=== PATIENT | female | born 1965 | race Caucasian/White ===

== ENCOUNTER → 2017-05-17 | Outpatient (CLI) | payer OTHER ==
[~2017-05-17] MED LIST: CALC600T60 PO; LAMO10TA PO; POTA-77 PO; TYLE167L PO; VITA500046 PO; [UNRECOGNIZED DRUG - OTHER] INJ
--- NOTE | 2017-05-18 19:35 | REP ---
PET/CT: History: Restaging malignant melanoma, stage III. Comparisons: Comparison PET/CT studies are reviewed from October 20 1016 and March 25, 2016. TECHNIQUE: 1 hour 29 minutes following the intravenous injection of a 10.1 mCi dose of F-18 FDG, three-dimensional PET scintigraphy is acquired from the skull vertex to the toes. Triplanar noncontrast CT scanning is acquired through the same anatomic range for attenuation correction, and image registration with scan parameters optimized to minimize radiation exposure to the patient. PET scintigraphy and CT datasets were fused and displayed on a workstation with multiplanar and projection display capability. PET/CT Findings: Review of nonattenuation correction images show no evidence of abnormal cutaneous or subcutaneous activity. No intracranial abnormality is seen. Head and neck soft tissues are unremarkable. No abnormal hypermetabolic uptake is seen within the chest. There is a sliding type hiatal hernia noted. No abnormal pulmonary parenchymal hypermetabolic uptake is seen. In the abdomen and pelvis, normal distribution of FDG tracer is seen. No abnormality is noted. No abnormal lower extremity uptake is seen. Impression: Negative PET scintigraphy. Signed by Denton Arango MD 05/18/2017 09:20 P
== END ==
LOC: M PLARAD 08:52
PROVIDERS: ATTEND Internal Medicine Hematology & Oncology
DX: C43.59 Malignant melanoma of other part of trunk (principal)
CPT/HCPCS: 78816; A9552

== ENCOUNTER → 2017-11-23 | Outpatient (CLI) | payer OTHER | LOC: M PLARAD 09:28 | DX: C43.59 Malignant melanoma of other part of trunk (principal) | CPT/HCPCS: 78816 ==

== ENCOUNTER → 2017-11-25 | Outpatient (REF) | payer OTHER ==
[2017-11-25 13:49] LABS: BASO # 0.1 10^3/uL (0.0-0.2); BASO % 1.3 % (0.0-1.0); EOS # 0.1 10^3/uL (0.0-0.50); EOS % 1.9 % (0.0-3.0); HEMATOCRIT 41.7 % (36.0-47.0); HEMOGLOBIN 13.7 g/dl (12.0-16.0); IMMATURE GRANULOCYTE % 0.4 % (0-0); LYMPH # 1.8 10^3/uL (1.5-4.5); LYMPH % 33.8 % (24.0-44.0); MEAN CORPUSCULAR HEMOGLOBIN 30.1 pg (27.0-33.0); MEAN CORPUSCULAR HGB CONC 32.9 g/dl (32.0-36.5); MEAN CORPUSCULAR VOLUME 91.6 fl (80.0-96.0); MONO # 0.5 10^3/uL (0.0-0.8); MONO % 9.8 % (0.0-5.0); NEUTROPHILS # 2.8 10^3/uL (1.8-7.7); NEUTROPHILS % 52.8 % (36.0-66.0); PLATELET COUNT, AUTOMATED 307 10^3/uL (150-450); RED BLOOD COUNT 4.55 10^6/uL (4.00-5.40); RED CELL DISTRIBUTION WIDTH 12.9 % (11.5-14.5); WHITE BLOOD COUNT 5.3 10^3/uL (4.0-10.0)
[2017-11-25 14:47] LABS: ALBUMIN 4.3 GM/DL (3.2-5.2); ALKALINE PHOSPHATASE 111 U/L (45-117); ALT/SGPT 30 U/L (12-78); ANION GAP 9 MEQ/L (8-16); AST/SGOT 16 U/L (7-37); BILIRUBIN,TOTAL 0.3 MG/DL (0.2-1.0); BLOOD UREA NITROGEN 12 MG/DL (7-18); CALCIUM LEVEL 9.5 MG/DL (8.5-10.1); CARBON DIOXIDE LEVEL 27 MEQ/L (21-32); CHLORIDE LEVEL 103 MEQ/L (98-107); CREATININE FOR GFR 0.83 MG/DL (0.55-1.02); GLOMERULAR FILTRATION RATE > 60.0 (>51); GLUCOSE, FASTING 109 MG/DL (70-105); LDH LACTATE DEHYDROGENASE 174 U/L (84-246); POTASSIUM SERUM 4.3 MEQ/L (3.5-5.1); SODIUM LEVEL 139 MEQ/L (136-145); TOTAL PROTEIN 7.6 GM/DL (6.4-8.2)
== END ==
LOC: M LABDRAWC 12:50
DX: C43.59 Malignant melanoma of other part of trunk (principal)

== ENCOUNTER → 2018-11-15 | Outpatient (REF) | payer OTHER ==
[2018-11-15 11:59] LABS: BASO # 0.1 10^3/uL (0.0-0.2); BASO % 0.8 % (0.0-1.0); EOS # 0.1 10^3/uL (0.0-0.50); HEMATOCRIT 41.5 % (36.0-47.0); HEMOGLOBIN 13.4 g/dl (12.0-15.5); LYMPH % 32.3 % (24.0-44.0); MEAN CORPUSCULAR HEMOGLOBIN 30.6 pg (27.0-33.0); MEAN CORPUSCULAR HGB CONC 32.3 g/dl (32.0-36.5); MEAN CORPUSCULAR VOLUME 94.7 fl (80.0-96.0); MONO # 0.5 10^3/uL (0.0-0.8); MONO % 7.9 % (0.0-5.0); NEUTROPHILS # 3.4 10^3/uL (1.8-7.7); NEUTROPHILS % 56.7 % (36.0-66.0); PLATELET COUNT, AUTOMATED 277 10^3/uL (150-450); RED BLOOD COUNT 4.38 10^6/uL (4.00-5.40)
[2018-11-15 13:41] LABS: ALBUMIN 3.7 GM/DL (3.2-5.2); ALT/SGPT 33 U/L (12-78); BILIRUBIN,TOTAL 0.4 MG/DL (0.2-1.0); BLOOD UREA NITROGEN 12 MG/DL (7-18); CALCIUM LEVEL 9.1 MG/DL (8.5-10.1); CARBON DIOXIDE LEVEL 30 MEQ/L (21-32); CHLORIDE LEVEL 105 MEQ/L (98-107); CREATININE FOR GFR 0.74 MG/DL (0.55-1.30); GLOMERULAR FILTRATION RATE > 60.0 (>51); GLUCOSE, FASTING 87 MG/DL (70-100); LDH LACTATE DEHYDROGENASE 190 U/L (84-246); POTASSIUM SERUM 3.9 MEQ/L (3.5-5.1); SODIUM LEVEL 140 MEQ/L (136-145); TOTAL PROTEIN 6.6 GM/DL (6.4-8.2)
== END ==
LOC: M LABDRAWC 11:23
PROVIDERS: ATTEND Internal Medicine Hematology & Oncology
DX: C43.59 Malignant melanoma of other part of trunk (principal)

== ENCOUNTER → 2018-11-28 | Outpatient (CLI) | payer OTHER ==
--- NOTE | 2018-11-28 18:53 | REP ---
PET/CT: History: Restaging malignant melanoma. Removed from right cheek in 2013. Stage III A. Comparisons: Comparison PET/CT study November 23, 2017. TECHNIQUE: 1 hour 8 minutes following the intravenous injection of a 8.2 mCi dose of F-18 FDG, three-dimensional PET scintigraphy is acquired from the skull vertex to the toes. Triplanar noncontrast CT scanning is acquired through the same anatomic range for attenuation correction, and image registration with scan parameters optimized to minimize radiation exposure to the patient. PET scintigraphy and CT datasets were fused and displayed on a workstation with multiplanar and projection display capability. PET/CT Findings: The head and neck soft tissues are unremarkable. No abnormal facial hypermetabolic uptake is seen. No abnormal karan uptake is observed. No hilar or mediastinal hypermetabolic uptake is seen. There is a moderate size hiatal hernia again noted. No abnormal pulmonary parenchymal FDG accumulation is seen. No pulmonary nodule is appreciated. In the abdomen and pelvis, normal hepatic, splenic, gastrointestinal and genitourinary FDG accumulation is seen. No abnormal karan hypermetabolic uptake is seen. No inguinal or other lower extremity hypermetabolic uptake is appreciated. Impression: Negative PET scintigraphy. Electronically Signed by Denton Arango MD 11/29/2018 07:30 A
== END ==
LOC: M PLARAD 10:48
PROVIDERS: ATTEND Internal Medicine Hematology & Oncology
DX: C43.59 Malignant melanoma of other part of trunk (principal); K44.9 Diaphragmatic hernia without obstruction or gangrene
CPT/HCPCS: 78815; A9552

== ENCOUNTER → 2018-12-19 | Outpatient (REF) | payer OTHER ==
[2018-12-19 11:49] LABS: CHOLESTEROL RISK RATIO 3.013 (<5); FREE T4 0.78 NG/DL (0.76-1.46); THYROID STIMULATING HORMONE 2.24 uIU/ML (0.358-3.740)
[2018-12-19 12:12] LABS: HEMOGLOBIN A1c 5.9 %
== END ==
LOC: M SFHCCLAY 08:17
PROVIDERS: ATTEND Nurse Practitioner Family
DX: E66.9 Obesity, unspecified (principal)

== ENCOUNTER → 2019-01-18 | Outpatient (CLI) | payer OTHER ==
[~2019-01-18] MED LIST changes: +PROHANCE 279.3MG/ML 15ML VIAL (A9576) As Ordered ONE; +PROHANCE 279.3MG/ML 5ML VIAL (A9576) As Ordered ONE
--- NOTE | 2019-01-19 17:21 | REP ---
BILATERAL MRI BREASTS WITH AND WITHOUT CONTRAST: TECHNIQUE: Multiple sequences were obtained in the axial, coronal and sagittal planes prior to and following the intravenous administration of 20 mL ProHance. Images are reviewed in the [employer] software with CAD images as well as color overlay images. Multiple sequences are obtained following dynamic administration of intravenous contrast with subtraction images obtained. Correlation made with prior mammogram 12/27/2018 as well as diagnostic mammogram and ultrasound left breast 12/28/2018. Asymmetric density was seen in the upper outer quadrant of the left breast. There is mild to moderate scattered fibroglandular tissue bilaterally in a relatively symmetrical pattern, only minimally asymmetric on the left. Posterolaterally there is no significant cystic change in either breast. Small axillary lymph nodes are seen bilaterally without adenopathy. There is mild scattered background parenchymal enhancement bilaterally. No suspicious mass or morphologic abnormality is seen. IMPRESSION: ACR 2 benign bilateral breast MRI. No suspicious mass or morphologic abnormality. Recommend routine followup bilateral mammogram in June 2020. Unreviewed
== END ==
LOC: M RAD 10:15
PROVIDERS: ATTEND Nurse Practitioner Family
DX: R92.8 Other abnormal and inconclusive findings on diagnostic imaging of breast (principal)
CPT/HCPCS: A9576; C8908

== ENCOUNTER → 2019-02-15 | Outpatient (REF) | payer OTHER ==
[~2019-02-15] MED LIST changes: +LAMO100T80 PO; -LAMO10TA PO; -PROHANCE 279.3MG/ML 15ML VIAL (A9576) As Ordered ONE; -PROHANCE 279.3MG/ML 5ML VIAL (A9576) As Ordered ONE
== END ==
LOC: M LABDRAW1 11:42
PROVIDERS: ATTEND Nurse Practitioner
DX: G40.219 Localization-related (focal) (partial) symptomatic epilepsy and epileptic syndromes with complex partial seizures, intractable, without status epilepticus (principal)

== ENCOUNTER → 2019-03-08 | Outpatient (REF) | payer OTHER | LOC: M SFHCCLAY 12:30 | PROVIDERS: ATTEND Nurse Practitioner Family | DX: Z01.419 Encounter for gynecological examination (general) (routine) without abnormal findings (principal) ==

== ENCOUNTER → 2019-12-03 | Outpatient (REF) | payer OTHER ==
[2019-12-03 12:35] LABS: BASO # 0.1 10^3/uL (0.0-0.2); BASO % 1.4 % (0.0-1.0); EOS # 0.2 10^3/uL (0.0-0.5); EOS % 2.7 % (0.0-3.0); HEMATOCRIT 41.2 % (36.0-47.0); HEMOGLOBIN 13.4 g/dl (12.0-15.5); LYMPH # 2.2 10^3/uL (1.5-5.0); LYMPH % 37.5 % (24.0-44.0); MEAN CORPUSCULAR HEMOGLOBIN 30.8 pg (27.0-33.0); MEAN CORPUSCULAR HGB CONC 32.5 g/dl (32.0-36.5); MEAN CORPUSCULAR VOLUME 94.7 fl (80.0-96.0); MONO # 0.5 10^3/uL (0.0-0.8); MONO % 8.5 % (0.0-5.0); NEUTROPHILS # 2.9 10^3/uL (1.5-8.5); NEUTROPHILS % 49.7 % (36.0-66.0); PLATELET COUNT, AUTOMATED 287 10^3/uL (150-450); RED BLOOD COUNT 4.35 10^6/uL (4.00-5.40); WHITE BLOOD COUNT 5.9 10^3/uL (4.0-10.0)
[2019-12-03 12:40] LABS: ALBUMIN 3.7 GM/DL (3.2-5.2); ALT/SGPT 27 U/L (12-78); BILIRUBIN,TOTAL 0.5 MG/DL (0.2-1.0); BLOOD UREA NITROGEN 13 MG/DL (7-18); CALCIUM LEVEL 9.6 MG/DL (8.5-10.1); CARBON DIOXIDE LEVEL 30 MEQ/L (21-32); CHLORIDE LEVEL 107 MEQ/L (98-107); GLOMERULAR FILTRATION RATE > 60.0 (>51); GLUCOSE, FASTING 97 MG/DL (70-100); LDH LACTATE DEHYDROGENASE 159 U/L (84-246); POTASSIUM SERUM 4.2 MEQ/L (3.5-5.1); SODIUM LEVEL 140 MEQ/L (136-145); TOTAL PROTEIN 6.7 GM/DL (6.4-8.2)
== END ==
LOC: M LABDRAWC 11:40
PROVIDERS: ATTEND Internal Medicine Hematology & Oncology
DX: C43.59 Malignant melanoma of other part of trunk (principal)

== ENCOUNTER → 2019-12-03 | Outpatient (REF) | payer OTHER ==
[2019-12-03 12:48] LABS: ALBUMIN 3.7 GM/DL (3.2-5.2); ALT/SGPT 27 U/L (12-78); BILIRUBIN,TOTAL 0.4 MG/DL (0.2-1.0); BLOOD UREA NITROGEN 14 MG/DL (7-18); CALCIUM LEVEL 9.3 MG/DL (8.5-10.1); CARBON DIOXIDE LEVEL 30 MEQ/L (21-32); CHLORIDE LEVEL 107 MEQ/L (98-107); CREATININE FOR GFR 0.91 MG/DL (0.55-1.30); GLOMERULAR FILTRATION RATE > 60.0 (>51); GLUCOSE, FASTING 95 MG/DL (70-100); POTASSIUM SERUM 4.3 MEQ/L (3.5-5.1); SODIUM LEVEL 141 MEQ/L (136-145); TOTAL PROTEIN 6.7 GM/DL (6.4-8.2)
[2019-12-03 12:59] LABS: HEMOGLOBIN A1c 6.2 %
== END ==
LOC: M SFHCCLAY 07:36
PROVIDERS: ATTEND Nurse Practitioner Family
DX: R73.09 Other abnormal glucose (principal)

== ENCOUNTER → 2019-12-20 | Outpatient (CLI) | payer OTHER ==
[~2019-12-20] MED LIST changes: +D3 H10002 PO
--- NOTE | 2019-12-20 15:54 | REP ---
Clinical: Right axillary palpable mass. Technique: A directed ultrasound examination of the right axillary region using nogueira scale and color evaluation with high frequency transducer. Findings: Directed ultrasound examination of the right axillary region demonstrates 13 x 7 x 12 mm hyperechoic ovoid structure which may represent lymph node or lipoma, and 12 x 6 x 10 mm hypoechoic structure most suggestive of small lymph node. Impression: Two small nonspecific structures likely representing lymph nodes or possibly lymph node and small lipoma. Electronically Signed by Lele Jin MD 12/20/2019 03:45 P
== END ==
LOC: M RAD 14:54
PROVIDERS: ATTEND Internal Medicine Hematology & Oncology
DX: C43.59 Malignant melanoma of other part of trunk (principal)

== ENCOUNTER 2019-12-24 11:02 | Day surgery (SDC) | payer OTHER ==
[~2019-12-24] VITALS: Ht 162.6 cm; Wt 95.3 kg
[~2019-12-24 11:02] MED LIST changes: +LIDOCAINE 2% INJ 100 MG/5 ML SDV (FOR ANES.) As Ordered ONE; +NS 1,000 ML IV ONE; +propofoL 200 MG/20 ML VIAL As Ordered ONE
--- NOTE | 2019-12-24 13:34 | ROOR ---
Patient Name: Gabriella Moody Procedure Date: 12/24/2019 1:09 PM Date of : 1965 Age: 54 Room: [facility] Gender: Female Note Status: Finalized Procedure: Total Colonoscopy to Cecum + Biopsy Polypectomy Indications: High risk colon cancer surveillance: Personal history of colonic polyps, Last colonoscopy: 2014 Providers: Anthony Schulte MD Referring MD: Christy Chavarria NP Requesting Provider: Medicines: Monitored Anesthesia Care Complications: No immediate complications. Procedure: Pre-Anesthesia Assessment: - The heart rate, respiratory rate, oxygen saturations, blood pressure, adequacy of pulmonary ventilation, and response to care were monitored throughout the procedure. The Colonoscope was introduced through the anus and advanced to the cecum, identified by appendiceal orifice and ileocecal valve. The colonoscopy was performed without difficulty. The patient tolerated the procedure well. The quality of the bowel preparation was excellent. Findings: The perianal and digital rectal examinations were normal. Non-bleeding internal hemorrhoids were found during retroflexion. The hemorrhoids were small and Grade I (internal hemorrhoids that do not prolapse). A small polyp was found at 35 cm proximal to the anus. The polyp was sessile. The polyp was removed with a cold biopsy forceps. Resection and retrieval were complete. A small polyp was found at 20 cm proximal to the anus. The polyp was sessile. The polyp was removed with a cold biopsy forceps. Resection and retrieval were complete. The exam was otherwise without abnormality on direct and retroflexion views. Scattered small-mouthed diverticula were found in the recto-sigmoid colon. The exam was otherwise without abnormality. Impression: - Non-bleeding internal hemorrhoids. - One small polyp at 35 cm proximal to the anus, removed with a cold biopsy forceps. Resected and retrieved. - One small polyp at 20 cm proximal to the anus, removed with a cold biopsy forceps. Resected and retrieved. - The examination was otherwise normal on direct and retroflexion views. - Diverticulosis in the recto-sigmoid colon. - The examination was otherwise normal. - The exam was otherwise normal to the cecum. Recommendation: - Patient has a contact number available for emergencies. The signs and symptoms of potential delayed complications were discussed with the patient. Return to normal activities tomorrow. Written discharge instructions were provided to the patient. - High fiber diet. - Discharge patient to home. - Continue present medications. - Await pathology results. - Telephone GI clinic for pathology results in 1 week. - Repeat colonoscopy in 5 years for surveillance. - Return to referring physician. - The findings and recommendations were discussed with the patient's family. Anthony Schulte MD Anthony Schulte MD 12/24/2019 1:33:46 PM Electronically signed by Anthony Schulte MD Number of Addenda: 0 Note Initiated On: 12/24/2019 1:09 PM Estimated Blood Loss: Estimated blood loss: none.
[2019-12-24 13:35] VITALS: BP 124/71
== END 2019-12-24 14:04 | disposition home or self-care (01) ==
LOC: M OPP 11:02
PROVIDERS: ATTEND Internal Medicine Gastroenterology
DX: Z12.11 Encounter for screening for malignant neoplasm of colon (principal); Z86.010 Personal history of colon polyps; K64.0 First degree hemorrhoids; K63.5 Polyp of colon; K57.30 Diverticulosis of large intestine without perforation or abscess without bleeding; Z79.899 Other long term (current) drug therapy; Z88.8 Allergy status to other drugs, medicaments and biological substances

== ENCOUNTER → 2020-01-03 | Outpatient (REF) | payer OTHER ==
[~2020-01-03] MED LIST changes: -LIDOCAINE 2% INJ 100 MG/5 ML SDV (FOR ANES.) As Ordered ONE; -NS 1,000 ML IV ONE; -propofoL 200 MG/20 ML VIAL As Ordered ONE
== END ==
LOC: M LABDRAWC 12:14
PROVIDERS: ATTEND Nurse Practitioner
DX: R56.9 Unspecified convulsions (principal); Z51.81 Encounter for therapeutic drug level monitoring

== ENCOUNTER → 2020-01-14 | Outpatient (CLI) | payer OTHER ==
--- NOTE | 2020-01-14 17:10 | REP ---
PET/CT: History: Diagnosing cystic structure right axilla. Comparison PET-CT study December 03, 2018. There is a history of malignant melanoma. Stage III A melanoma 2014. Small palpable cystic structure in the right axilla. Ultrasound showed a hypoechoic areas consistent with lymph nodes. Question abnormal uptake. TECHNIQUE: 59 minutes following the intravenous injection of a 8.03 mCi dose of F-18 FDG, three-dimensional PET scintigraphy is acquired from the skull vertex to the toes . Triplanar noncontrast CT scanning is acquired through the same anatomic range for attenuation correction, and image registration with scan parameters optimized to minimize radiation exposure to the patient. PET scintigraphy and CT datasets were fused and displayed on a workstation with multiplanar and projection display capability. PET/CT Findings: Head and neck images show no abnormal uptake. There is no abnormal axillary lymph node uptake. No axillary mass lesion is seen. No cyst is identified on accompanying CT. No abnormal breast uptake is seen on either side. No abnormal cutaneous uptake is observed. In the abdomen and pelvis normal distribution of tracer is seen. No abnormal hypermetabolic uptake is seen in the lower extremities. Impression: Negative PET scintigraphy. No axillary adenopathy, mass or cyst seen. No abnormal soft tissue uptake. Electronically Signed by Denton Arango MD 01/14/2020 05:46 P
== END ==
LOC: M PLARAD 10:25
PROVIDERS: ATTEND Internal Medicine Hematology & Oncology
DX: C43.59 Malignant melanoma of other part of trunk (principal)

== ENCOUNTER → 2020-05-22 | Outpatient (CLI) | payer SELFPAY | LOC: M LABSMTC 13:12 | PROVIDERS: ATTEND Pediatrics | DX: Z03.818 Encounter for observation for suspected exposure to other biological agents ruled out (principal); Z11.59 Encounter for screening for other viral diseases ==

== ENCOUNTER → 2020-07-21 | Outpatient (CLI) | payer OTHER ==
--- NOTE | 2020-08-08 09:50 | REP ---
EXTREMITY NONVASCULAR ULTRASOUND CLINICAL: Follow-up axillary lymph node. TECHNIQUE: Real-time nogueira scale and color evaluation using linear high frequency transducer. COMPARISON: 12/20/2019. FINDINGS: Directed ultrasound examination of the axillary region demonstrates a single normal lymph node measuring 8 x 4 x 4 mm and decreased from prior examination. No further adenopathy, fluid collection, or mass lesion. IMPRESSION: Improved appearance with single normal axillary lymph node identified. [facility]
== END ==
LOC: M RAD 09:47
PROVIDERS: ATTEND Internal Medicine Hematology & Oncology
DX: C43.59 Malignant melanoma of other part of trunk (principal)

== ENCOUNTER → 2020-12-01 | Outpatient (REF) | payer OTHER ==
[2020-12-01 11:57] LABS: BASO # 0.1 10^3/uL (0.0-0.2); BASO % 1.3 % (0.0-1.0); EOS # 0.1 10^3/uL (0.0-0.5); EOS % 1.9 % (0.0-3.0); HEMATOCRIT 41.1 % (36.0-47.0); HEMOGLOBIN 13.1 g/dl (12.0-15.5); LYMPH % 32.7 % (24.0-44.0); MEAN CORPUSCULAR HEMOGLOBIN 29.2 pg (27.0-33.0); MEAN CORPUSCULAR HGB CONC 31.9 g/dl (32.0-36.5); MEAN CORPUSCULAR VOLUME 91.5 fl (80.0-96.0); MONO # 0.5 10^3/uL (0.0-0.8); MONO % 8.6 % (0.0-5.0); NEUTROPHILS # 3.4 10^3/uL (1.5-8.5); NEUTROPHILS % 55.2 % (36.0-66.0); PLATELET COUNT, AUTOMATED 323 10^3/uL (150-450); RED BLOOD COUNT 4.49 10^6/uL (4.00-5.40); WHITE BLOOD COUNT 6.2 10^3/uL (4.0-10.0)
[2020-12-01 12:28] LABS: ALBUMIN 3.8 GM/DL (3.2-5.2); ALT/SGPT 25 U/L (12-78); BILIRUBIN,TOTAL 0.1 MG/DL (0.2-1.0); BLOOD UREA NITROGEN 13 MG/DL (7-18); CALCIUM LEVEL 9.3 MG/DL (8.5-10.1); CARBON DIOXIDE LEVEL 28 MEQ/L (21-32); CHLORIDE LEVEL 105 MEQ/L (98-107); CREATININE FOR GFR 0.91 MG/DL (0.55-1.30); GLOMERULAR FILTRATION RATE > 60.0 (>51); GLUCOSE, FASTING 106 MG/DL (70-100); LDH LACTATE DEHYDROGENASE 159 U/L (84-246); POTASSIUM SERUM 4.3 MEQ/L (3.5-5.1); SODIUM LEVEL 142 MEQ/L (136-145); TOTAL PROTEIN 6.8 GM/DL (6.4-8.2)
== END ==
LOC: M LABDRAWC 11:23
PROVIDERS: ATTEND Internal Medicine Hematology & Oncology
DX: C43.59 Malignant melanoma of other part of trunk (principal)

== ENCOUNTER → 2021-02-05 | Outpatient (REF) | payer OTHER ==
[2021-02-05 13:49] LABS: BLOOD UREA NITROGEN 6 MG/DL (7-18); CALCIUM LEVEL 9.5 MG/DL (8.5-10.1); CARBON DIOXIDE LEVEL 28 MEQ/L (21-32); CHLORIDE LEVEL 103 MEQ/L (98-107); CREATININE FOR GFR 0.87 MG/DL (0.55-1.30); GLOMERULAR FILTRATION RATE > 60.0 (>51); GLUCOSE, FASTING 84 MG/DL (70-100); POTASSIUM SERUM 4.3 MEQ/L (3.5-5.1); SODIUM LEVEL 138 MEQ/L (136-145)
== END ==
LOC: M SFHCCLAY 09:12
PROVIDERS: ATTEND Family Medicine
DX: R47.89 Other speech disturbances (principal); Z85.820 Personal history of malignant melanoma of skin

== ENCOUNTER 2021-02-16 14:46 | Emergency (ER) | payer OTHER ==
[~2021-02-16] VITALS: Ht 162.6 cm; Wt 86.0 kg
[~2021-02-16 14:46] MED LIST changes: -PROHANCE 279.3MG/ML 15ML VIAL As Ordered ONE; -PROHANCE 279.3MG/ML 5ML VIAL As Ordered ONE
[2021-02-16 15:32] LABS: BASO # 0.1 10^3/uL (0.0-0.2); BASO % 0.9 % (0.0-1.0); EOS # 0.1 10^3/uL (0.0-0.5); EOS % 0.9 % (0.0-3.0); HEMATOCRIT 42.4 % (36.0-47.0); HEMOGLOBIN 13.5 g/dl (12.0-15.5); LYMPH # 1.7 10^3/uL (1.5-5.0); LYMPH % 26.3 % (24.0-44.0); MEAN CORPUSCULAR HEMOGLOBIN 29.1 pg (27.0-33.0); MEAN CORPUSCULAR HGB CONC 31.8 g/dl (32.0-36.5); MEAN CORPUSCULAR VOLUME 91.4 fl (80.0-96.0); MONO # 0.4 10^3/uL (0.0-0.8); MONO % 5.6 % (2.0-8.0); NEUTROPHILS # 4.2 10^3/uL (1.5-8.5); NEUTROPHILS % 65.8 % (36.0-66.0); PLATELET COUNT, AUTOMATED 277 10^3/uL (150-450); RED BLOOD COUNT 4.64 10^6/uL (4.00-5.40); WHITE BLOOD COUNT 6.4 10^3/uL (4.0-10.0)
[2021-02-16 16:12] LABS: ALBUMIN 4.1 GM/DL (3.2-5.2); ALT/SGPT 23 U/L (12-78); BILIRUBIN,DIRECT < 0.1 MG/DL (0.0-0.2); BILIRUBIN,TOTAL 0.2 MG/DL (0.2-1.0); BLOOD UREA NITROGEN 7 MG/DL (7-18); CALCIUM LEVEL 9.3 MG/DL (8.5-10.1); CARBON DIOXIDE LEVEL 29 MEQ/L (21-32); CHLORIDE LEVEL 105 MEQ/L (98-107); CK-MB VALUE MASS 1.3 NG/ML (<3.6); CPK CREATINE PHOSPHOKINASE 118 U/L (26-192); CREATININE FOR GFR 0.96 MG/DL (0.55-1.30); GLOMERULAR FILTRATION RATE > 60.0 (>51); GLUCOSE, FASTING 140 MG/DL (70-100); POTASSIUM SERUM 3.2 MEQ/L (3.5-5.1); SODIUM LEVEL 141 MEQ/L (136-145); TOTAL PROTEIN 7.4 GM/DL (6.4-8.2); TROPONIN I < 0.02 NG/ML (< 0.10)
[2021-02-16 17:19] LABS: RSV AMPLIFICATION NEGATIVE (NEGATIVE)
[2021-02-16] MEDS ORDERED: LORazepam 2 MG TAB PO STA (18:37)
[2021-02-16 18:53] VITALS: BP 147/79
== END 2021-02-16 18:56 | disposition short-term general hospital (02) ==
LOC: M ED 14:46
DX: R90.0 Intracranial space-occupying lesion found on diagnostic imaging of central nervous system (principal); Z88.8 Allergy status to other drugs, medicaments and biological substances

== ENCOUNTER → 2021-02-16 | Outpatient (CLI) | payer OTHER ==
[~2021-02-16] MED LIST changes: +PROHANCE 279.3MG/ML 15ML VIAL As Ordered ONE; +PROHANCE 279.3MG/ML 5ML VIAL As Ordered ONE
--- NOTE | 2021-02-16 13:10 | REPVR ---
PROCEDURE INFORMATION: Exam: MR Head Without and With Contrast Exam date and time: 02/16/2021 12:50 PM Age: 55 years old Clinical indication: Altered mental status/memory loss and speech disturbance; Dysphasia; Prior surgery; Surgery date: 6+ months; Patient HX: 2008 SX to craniotomy to remove partial seizure activity. No sz since, current severe memory loss, confusion, increased frustration and mood swings, inability to form words or remember words HX melanoma removed 2013 RT side of neck; Additional info: Word finding diff, HX of melanoma TECHNIQUE: Imaging protocol: MR of the head without and with intravenous contrast. Contrast material: PROHANCE; Contrast volume: 17 ml; Contrast route: INTRAVENOUS (IV); COMPARISON: MRI-Brain W/O FOLL BY WITH 07/19/2014 11:35 AM FINDINGS: Brain: There is a new large heterogeneous mass within the left temporal lobe, measuring approximately 5.0 x 3.8 x 3.6 cm. Areas of intrinsic increased T1 signal is present within the mass which could be due to blood products and/or melanin (particularly given the history melanoma). Heterogeneous enhancement is also present within the mass. There is significant surrounding vasogenic edema. This is causing 8 mm of rightward midline shift and left uncal herniation. There is no additional 12 x 12 x 11 mm enhancing mass in the lateral left parietal lobe, just above the sylvian fissure. Minimal surrounding edema is present. Of the findings are concerning for metastatic disease. A large surgical resection cavity is noted within the anterior right temporal lobe. There is no restricted diffusion to suggest acute infarction. Cerebral ventricles: No hydrocephalus. Bones/joints: An old right temporoparietal craniotomy is present. Paranasal sinuses: Normal as visualized. No acute sinusitis. Mastoid air cells: Normal as visualized. No mastoid effusion. Orbital cavity: Unremarkable. Soft tissues: Unremarkable. IMPRESSION: 1. New 5 cm heterogeneous mass in the left temporal lobe, as well as a 12 mm enhancing lesion in the lateral left parietal lobe. The findings are concerning for metastatic disease. 2. Significant edema around the left temporal lobe mass is causing 8 mm of rightward midline shift and left uncal herniation Electronically signed by: Ricardo Pires On 02/16/2021 13:10:43 PM
== END ==
LOC: M RAD 11:28
PROVIDERS: ATTEND Family Medicine
DX: D49.6 Neoplasm of unspecified behavior of brain (principal); R47.89 Other speech disturbances; G93.89 Other specified disorders of brain
CPT/HCPCS: 70553; A9576

== ENCOUNTER → 2021-02-27 | Outpatient (CLI) | payer OTHER ==
--- NOTE | 2021-02-27 12:15 | RADONC.CN ---
Radiation Oncology Hx/Consult Radiation Oncology Consult Date of Service: Feb 27, 2021 Pt Identifier Gabriella Moody is a 55 year old female with a history of epilepsy and stage IIIA melanoma of the trunk and right axillary nodes, treated in 2013 with resection and adjuvant interferon (Dr. Corrigan @ [facility]), who presented to her PCP in February 2021 with new-onset AYALA and word finding difficulties. MRI on 02/16/21 showed a left temporal hemorrhagic metastases as well as a smaller left frontal lobe lesion. She was transferred to [facility] (where her prior epilepsy surg linh had been performed) where she underwent resection of the left temporal mass on 02/19/21. Pathology showed metastatic melanoma. She was discharged with a decadron taper. She is seen for consideration of SRS. Diagnosis/Treatment History Oncologic History 01/23/14 Diagnosed with stage IIIA melanoma of the right trunk (upper back), SLNB+ right neck. She declined site-directed RT. 05/13/14-06/14/14 Adjuvant IV interferon. 06/14/14 Had 1 dose of subcutaneous interferon at home c/b seizure or encephalopathy. She discontinued interferon. 07/19/14 MRI head negative 10/02/14 PET-CT negative 03/20/15 PET-CT negative 09/25/15 PET-CT negative 03/25/16 PET-CT negative 10/20/16 PET-CT negative 05/17/17 PET-CT negative 11/23/17 PET-CT negative 11/28/18 PET-CT negative 01/14/20 PET-CT negative Recent data: 02/16/21 MRI head FINDINGS: Brain: There is a new large heterogeneous mass within the left temporal lobe, measuring approximately 5.0 x 3.8 x 3.6 cm. Areas of intrinsic increased T1 signal is present within the mass which could be due to blood products and/or melanin (particularly given the history melanoma). Heterogeneous enhancement is also present within the mass. There is significant surrounding vasogenic edema. This is causing 8 mm of rightward midline shift and left uncal herniation. There is no additional 12 x 12 x 11 mm enhancing mass in the lateral left parietal lobe, just above the sylvian fissure. Minimal surrounding edema is present. Of the findings are concerning for metastatic disease. A large surgical resection cavity is noted within the anterior right temporal lobe. There is no restricted diffusion to suggest acute infarction. Cerebral ventricles: No hydrocephalus. Bones/joints: An old right temporoparietal craniotomy is present. Paranasal sinuses: Normal as visualized. No acute sinusitis. Mastoid air cells: Normal as visualized. No mastoid effusion. Orbital cavity: Unremarkable. Soft tissues: Unremarkable. IMPRESSION: 1. New 5 cm heterogeneous mass in the left temporal lobe, as well as a 12 mm enhancing lesion in the lateral left parietal lobe. The findings are concerning for metastatic disease. 2. Significant edema around the left temporal lobe mass is causing 8 mm of rightward midline shift and left uncal herniation 02/20/21 MRI ([facility]) Post-op changes in the left temporal lobe. Residual edema. Redemonstration of 1.2 cm left temporal lobe metastasis. Interval History Gabriella is here with her Tong. She is tolerating decadron taper (per Dr. Simmons). She has no AYALA or incisional pain. She has no skin concerns related to her incision. She still has some mild clouded sensorium, she has a hard time remembering recent events. Her reports no significant word finding difficulties at this time. She has a call in to Dr. Corrigan's office for an appointment. Past Medical History: Epilepsy Past Surgical History: Epilepsy surgery x 2 Dr. Doshi [facility] C section Family History: Father brain cancer Mother unknown cancer type Social History: Never smoker Active drinker 2-3 drinks per day ~2 days per week Allergies / Meds Allergies: Coded Allergies: carbamazepine (Verified Allergy, Mild, rash, 12/21/19) Home Meds Reported Medications Lamotrigine (Lamotrigine) 100 Mg Tab, 150 MG PO BID, TAB 07/15/14 Review of Systems General: Reports: Normal Appetite Constitutional: Denies: Chills, Fever, Night Sweats Eyes: Denies: Pain, Vision change HEENT: Denies: Head Aches, Dysphagia, Sore Throat Skin: Denies: Rash, Lesions, Bruising Pulmonary: Denies: Dyspnea, Cough Cardiovascular: Denies: Chest Pain, Palpitations, Edema Gastrointestinal: Denies: Nausea, Vomiting, Abdominal Pain, Diarrhea Genitourinary: Denies: Dysuria, Frequency, Incontinence Hematologic: Denies: Bruising, Petecchia, Enlarged Lymph Nodes Musculoskeletal: Denies: Neck pain, Back pain Neurological: Reports: Confusion; Denies: Weakness, Numbness, Incoordination, Seizures Psych: Reports: Mood Normal, Memory Issues; Denies: Thoughts of Self Harm Vital Signs Ht 64" Wt 190 lbs BMI 32 T 97.8 P 65 RR 16 BP 155/89 O2 99% Pain 0 Fatigue 1 General Exam: Positive: Alert, Cooperative, No Acute Distress Eye Exam: Positive: PERRLA, EOMI ENT EXAM: Negative: Atraumatic (Left frontal craniotomy incision healing with sutures in place. No active drainage.) Neck Exam: Positive: Supple; Negative: Lymphadenopathy (Right neck dissection incision noted) Chest Exam: Positive: Clear to auscultation Heart Exam: Positive: Rate Normal Abdomen Exam: Positive: Soft Extremity Exam: Negative: Edema Skin Exam: Positive: Nl turgor and temperature Neuro Exam: Positive: Normal Gait, Normal Speech, Cranial Nerves 3-12 NL, Other Psych Exam: Positive: Mental status NL Diagnostic and Laboratory Diagnostic Review Radiologic images, relevant labs and pathology reports were personally reviewed and discussed with Ms. Moody. Assessment and Plan Impression Ms. Moody is a 55 year old female with a history of epilepsy and stage IIIA melanoma of the trunk and right axillary nodes, treated in 2013 with resection and adjuvant interferon (Dr. Corrigan @ [facility]), who presented to her PCP in February 2021 with new-onset AYALA and word finding difficulties. MRI on 02/16/21 showed a left temporal hemorrhagic metastases as well as a smaller left frontal lobe lesion. She was transferred to [facility] (where her prior epilepsy surgery had been performed) where she underwent resection of the left temporal mass on 02/19/21. Pathology showed metastatic melanoma. She was discharged with a decadron taper. She is seen for consideration of SRS. Stage Melanoma stage IIIA--> Now M1d stage IV Performance Status ECOG 1 Plan We had an extensive discussion with Ms. Moody regarding the diagnosis at hand and available therapeutic options. She is doing relatively well s/p craniotomy. She is tolerating steroid wean. I encouraged her to continue to wean off steroids per the taper plan she was given. She is free of seizures on her home lamictal. I discussed that her presentation is not uncommon with melanoma presenting with latent brain metastases. I also discussed that radiosurgical treatment is highly effective and that she may be eligible for additional systemic therapy with efficacy in the brain as well. I recommend we proceed with adjuvant SRS to the resection cavity and treat the intact left frontal metastasis simultaneously. Treatment will be monoisocentric VMAT-based in 3 or 5 fractions depending on the post-operative imaging (which we are attempting to obtain in hard copy) I also discussed the need to obtain a current MRI to proceed with treatment as her prior study (from 02/20/21) will have lapsed beyond the imaging [id number] of treatment quality benchmark for SRS cases we enforce here. This updated MRI can be obtained next week. We discussed the logistics of receiving radiation therapy in detail including the need for a 1-time planning session. This can occur next week as well. We will start her treatment immediately after her post-op visit with Dr. Simmons which is scheduled for 03/11/21. We reviewed the side effects of treatment including fatigue, jeremie-lesional edema and late necrosis. After discussing the risks, benefits and alternatives to radiation therapy, Ms. Moody was amenable to pursuing radiotherapy. All questions were answered to the patient's satisfaction. She also needs medical oncology follow up with Dr. Corrigan. I have placed a ref erral order. Gabriella will need body imaging to restage her, but I will defer ordering this to Dr. Corrigan. We instructed the patient that if there were any questions,concerns or changes in clinical status in the interim to contact us. Recommendations SRS VMAT 3 or 5 fractions contingent upon post-operative imaging Repeat MRI next week Simulation next week Will start treatment immediately after her post-op visit with Dr. Simmons (03/11/21) Billing Statement Total time of [52] minutes was spent preparing for the visit [4], obtaining HPI [4], examining the patient [3], reviewing diagnostic tests [6], discussing management options [22], coordinating care [2], and writing this note [11]. MARY MEZA MD Feb 27, 2021 12:15
== END ==
LOC: M ONCR 09:55
PROVIDERS: ATTEND General Practice
DX: C43.9 Malignant melanoma of skin, unspecified (principal); C79.31 Secondary malignant neoplasm of brain

== ENCOUNTER → 2021-03-10 | Outpatient (CLI) | payer OTHER ==
--- NOTE | 2021-03-10 11:12 | REP ---
INDICATION: MELANOMA W/ BRAIN METS, SRS PLANNING. COMPARISON: Comparison brain MRI study is from 16 February 2021. Comparison MRI study is also reviewed from 19 July 2014.. TECHNIQUE: Axial and sagittal imaging planes are utilized for T1 and T2-weighted scans. Sequences include spin-echo, fast spin echo, FLAIR, and diffusion weighted sequences. Post gadolinium enhanced imaging is included in all 3 planes. The gadolinium enhancement dose is 15 mL of ProHance. FINDINGS: In the interval since the most recent prior study, the patient has undergone left temporal craniotomy with resection of the large left temporal lobe mass. A previous right temporal craniotomy had been performed as well. No other bony calvarial lesion is seen. The previously noted large left temporal lobe mass lesion has been resected. There is some residual contrast enhancement at the site where the prior study showed the mass. This measures 1.8 x 2.2 cm on postcontrast imaging which may be some postoperative encephalomalacia. There is a small quantity of fluid at the craniotomy site. Mass effect is resolved. The 2nd lesion noted above the sylvian fissure in the left parietal lobe is again seen demonstrating enhancement and measuring 1.1 cm in greatest diameter. This is unchanged. No new enhancing metastatic focus is appreciated. IMPRESSION: Recent postoperative changes in the inferior temporal lobe region on the left. Residual 1.1 cm enhancing left parietal lobe nodule. No new metastatic focus is appreciated. Old postsurgical changes with encephalomalacia in the right inferior temporal. <Electronically signed by Domenico Arango > 03/10/21 [id number]
== END ==
LOC: M PLARAD 08:31
PROVIDERS: ATTEND General Practice
DX: G93.89 Other specified disorders of brain (principal); Z98.890 Other specified postprocedural states; C79.31 Secondary malignant neoplasm of brain

== ENCOUNTER 2021-03-20 13:21 | Outpatient (RCR) | payer OTHER | END 2021-04-06 | LOC: M ONCR 13:21 | PROVIDERS: ATTEND General Practice | DX: C79.31 Secondary malignant neoplasm of brain (principal) ==

== ENCOUNTER → 2021-04-08 | Outpatient (REF) | payer OTHER | LOC: M SFHCCLAY 15:00 | PROVIDERS: ATTEND Nurse Practitioner Family | DX: Z01.419 Encounter for gynecological examination (general) (routine) without abnormal findings (principal) ==

== ENCOUNTER → 2021-05-13 | Outpatient (REF) | payer OTHER ==
[2021-05-13 17:23] LABS: BLOOD UREA NITROGEN 14 MG/DL (7-18); CREATININE FOR GFR 0.72 MG/DL (0.55-1.30); GLOMERULAR FILTRATION RATE > 60.0 (>51)
== END ==
LOC: M LABDRAWC 15:55
PROVIDERS: ATTEND Internal Medicine Hematology & Oncology
DX: C79.31 Secondary malignant neoplasm of brain (principal); R74.8 Abnormal levels of other serum enzymes; C43.59 Malignant melanoma of other part of trunk

== ENCOUNTER → 2021-05-18 | Outpatient (CLI) | payer OTHER ==
[~2021-05-18] MED LIST changes: +DECA4TAB PO; +PROT1TAB2 PO; +SENN-80 PO
== END ==
LOC: M ONCR 13:40
PROVIDERS: ATTEND General Practice
DX: Z53.9 Procedure and treatment not carried out, unspecified reason (principal)

== ENCOUNTER → 2021-06-11 | Outpatient (REF) | payer OTHER ==
[2021-06-11 12:29] LABS: BLOOD UREA NITROGEN 18 MG/DL (7-18); CALCIUM LEVEL 8.6 MG/DL (8.5-10.1); CARBON DIOXIDE LEVEL 32 MEQ/L (21-32); CHLORIDE LEVEL 98 MEQ/L (98-107); CREATININE FOR GFR 0.64 MG/DL (0.55-1.30); GLOMERULAR FILTRATION RATE > 60.0 (>51); GLUCOSE, FASTING 89 MG/DL (70-100); POTASSIUM SERUM 3.6 MEQ/L (3.5-5.1); SODIUM LEVEL 135 MEQ/L (136-145)
== END ==
LOC: M SFHCCLAY 08:08
PROVIDERS: ATTEND Nurse Practitioner Family
DX: R60.9 Edema, unspecified (principal)

== ENCOUNTER → 2021-06-23 | Outpatient (CLI) | payer OTHER ==
--- NOTE | 2021-06-23 11:34 | RADONC ---
Radiation Oncology Hx/FUP Radiation Oncology Hx/FUP Date of Service: Jun 23, 2021 Pt Identifier Gabriella Moody is a 56 year old female seen for a followup visit today at the department of radiation oncology for a history of epilepsy and stage IIIA melanoma of the trunk and right axillary nodes, treated in 2013 with resection and adjuvant interferon (Dr. Corrigan @ [facility]), who presented to her PCP in February 2021 with new-onset AYALA and word finding difficulties. MRI on 02/16/21 showed a left temporal hemorrhagic metastases as well as a smaller left frontal lobe lesion. She was transferred to [facility] (where her prior epilepsy surgery had been performed) where she underwent resection of the left temporal mass on 02/19/[address] Simmons. Pathology showed metastatic melanoma. She completed SRS 30 Gy in 5 fractions to the left temporal lobe cavity and intact left frontal lobe lesion on 03/20/21. Diagnosis/Treatment History Oncologic History 01/23/14 Diagnosed with stage IIIA melanoma of the right trunk (upper back), SLNB+ right neck. She declined site-directed RT. 05/13/14-06/14/14 Adjuvant IV interferon. 06/14/14 Had 1 dose of subcutaneous interferon at home c/b seizure or encephalopathy. She discontinued interferon. 07/19/14 MRI head negative 10/02/14 PET-CT negative 03/20/15 PET-CT negative 09/25/15 PET-CT negative 03/25/16 PET-CT negative 10/20/16 PET-CT negative 05/17/17 PET-CT negative 11/23/17 PET-CT negative 11/28/18 PET-CT negative 01/14/20 PET-CT negative in body, asymmetrical uptake in the left temporal lobe 02/16/21 MRI brain 5 cm left temporal lesion, 1.2 cm left frontal lesion Resection [facility] Dr. Simmons metastatic melanoma 02/20/21 Post-op MRI UR Residual edema and 1.2 cm left frontal lesion 03/16/21-03/20/21 SRS 30 Gy in 5 fractions dose constraints met per TE Recent data: 06/17/21 MRI head [facility] Left temporal cavity with gliosis and no mass Left frontal lesion increased to 2.5 x 1.9 cm with internal hemorrhage and surrounding edema Interval History Gabriella is here with Tong. She reports that she has been unable to tolerate decadron wean below 2 mg BID (per Dr. Muhammad @ [facility]). She has experienced right arm clumsiness eye twitching and word finding difficulties when she has gone below this dose. On this dose however, she is AYALA, N, V-free. She is golfing, appetite and weight are stable. She has seen Dr. Corrigan recently who recommends PET-CT and starting encorafenib/binimetinib (given her present steroid dose precludes immunotherapy). Current Therapy Encorafenib/binimetinib pending PET-CT Stage Melanoma stage IV Social History: Never smoker Active drinker 2-3 drinks per day ~2 days per week Allergies / Meds Allergies: Coded Allergies: carbamazepine (Verified Allergy, Mild, rash, 12/21/19) Home Meds Reported Medications Sennosides (Senna) 8.6 Mg Tablet, 2 TAB PO BID for constipation for 25 Days, #100 TAB 05/18/21 Pantoprazole Sodium (Protonix) 40 Mg Tablet.dr, 40 MG PO DAILY for 30 Days, #30 TAB 05/18/21 Dexamethasone (Decadron) Unknown Strength Tablet, 2 MG PO BID for 1 Day, #1 TAB 05/18/21 Lamotrigine (Lamotrigine) 100 Mg Tab, 150 MG PO BID, TAB 07/15/14 Review of Systems Review of Systems Constitutional: Denies: Chills, Fever, Weight Loss Eyes: Denies: Pain, Vision change HEENT: Denies: Head Aches Skin: Denies: Rash Pulmonary: Denies: Dyspnea Cardiovascular: Denies: Chest Pain Gastrointestinal: Denies: Nausea, Vomiting Musculoskeletal: Denies: Neck pain, Back pain Neurological: Denies: Weakness, Numbness, Change in Speech, Confusion, Seizures Psych: Reports: Mood Normal Physical Examination Vital Signs Wt 202 lbs (from 190 lbs in February 2021) T 97.2 P 67 RR 18 BP 135/80 O2 100% Pain 0 Fatigue 0 General Exam: Alert, Cooperative, No Acute Distress Eye Exam: PERRLA, EOMI ENT EXAM: Atraumatic Neck Exam: Supple Chest Exam: Clear to auscultation Heart Exam: Rate Normal Abdomen Exam: Soft Extremity Exam: Negative: Edema Skin Exam: Nl turgor and temperature Neuro Exam: Normal Gait, Normal Speech, Strength at 5/5 X4 ext, Normal Tone, Cranial Nerves 3-12 NL Psych Exam: Mental status NL Diagnostic and Laboratory Diagnostic Review Radiologic images, relevant labs and pathology reports were personally reviewed and discussed with Ms. Moody. Assessment and Plan Impression Assessment Ms. Moody is a 56 year old female with a history of epilepsy and stage IIIA melanoma of the trunk and right axillary nodes, treated in 2013 with resection and adjuvant interferon (Dr. Corrigan @ [facility]), who presented to her PCP in February 2021 with new-onset AYALA and word finding difficulties. MRI on 02/16/21 showed a left temporal hemorrhagic metastases as well as a smaller left frontal lobe lesion. She was transferred to [facility] (where her prior epilepsy surgery had been performed) where she underwent resection of the left temporal mass on 02/19/[address] Simmons. Pathology showed metastatic melanoma. She completed SRS 30 Gy in 5 fractions to the left temporal lobe cavity and intact left frontal lobe lesion on 03/20/21. She has no recrudescent neurological symptoms on decadron 2 mg BID, unfortunately she has been unable to tolerate taper beyond this dose. I reviewed the recent MRI, which shows internal hemorrhage in the left frontal lesion. 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 Future MRI follow up should clarify this. I recommend another MRI in 3 months time, this can be done @ [facility]. We would expect minimal additional growth of the lesion and or shrinkage as the internal blood product is absorbed. Further in the future we can consider dedicated brain PET-CT and/or Ti-201 scan to clarify the nature of the lesion. If the lesion remains symptomatic and/or proves to harbor persistent cancer, then resection should be strongly considered. Dr. Muhammad is managing her steroids, I will defer to him regarding the plan for another taper attempt. With respect to her systemic therapy, Dr. Corrigan has discussed started BRAF/MEK inhibitors. I think this is a good choice given that these agent have intracranial activity. As opposed to immunotherapy, which has comparatively less intracranial efficacy. Per Gabriella Dr. Corrigan is facilitating PET-CT prior to starting treatment. Performance Status ECOG 1 Plan MRI brain @ [facility] 3 months Follow up then Ms. Moody was encouraged to call with questions or concerns in the interim period. Billing Statement Total time of [32] minutes was spent preparing for the visit [2], obtaining HPI [6], examining the patient [3], reviewing diagnostic tests [5], discussing management options [5], coordinating care [2], and writing this note [9]. MARY MEZA MD Jun 23, 2021 11:34
== END ==
LOC: M ONCR 08:49
PROVIDERS: ATTEND General Practice
DX: C43.59 Malignant melanoma of other part of trunk (principal); C77.3 Secondary and unspecified malignant neoplasm of axilla and upper limb lymph nodes; C79.31 Secondary malignant neoplasm of brain; G40.909 Epilepsy, unspecified, not intractable, without status epilepticus; Z79.899 Other long term (current) drug therapy; Z88.8 Allergy status to other drugs, medicaments and biological substances; Z92.3 Personal history of irradiation

== ENCOUNTER → 2021-06-30 | Outpatient (REF) | payer OTHER ==
[2021-06-30 12:01] LABS: BASO % 0.1 % (0.0-1.0); EOS % 0.1 % (0.0-3.0); HEMOGLOBIN 10.8 g/dl (12.0-15.5); LYMPH # 1.2 10^3/uL (1.5-5.0); LYMPH % 14.2 % (24.0-44.0); MEAN CORPUSCULAR HEMOGLOBIN 27.3 pg (27.0-33.0); MEAN CORPUSCULAR HGB CONC 31.8 g/dl (32.0-36.5); MEAN CORPUSCULAR VOLUME 85.9 fl (80.0-96.0); MONO # 0.6 10^3/uL (0.0-0.8); MONO % 6.6 % (2.0-8.0); NEUTROPHILS # 6.6 10^3/uL (1.5-8.5); NEUTROPHILS % 78.4 % (36.0-66.0); PLATELET COUNT, AUTOMATED 328 10^3/uL (150-450); RED BLOOD COUNT 3.96 10^6/uL (4.00-5.40); WHITE BLOOD COUNT 8.5 10^3/uL (4.0-10.0)
[2021-06-30 12:42] LABS: ALBUMIN 3.4 GM/DL (3.2-5.2); ALT/SGPT 61 U/L (12-78); BILIRUBIN,TOTAL 0.3 MG/DL (0.2-1.0); BLOOD UREA NITROGEN 26 MG/DL (7-18); CALCIUM LEVEL 8.3 MG/DL (8.5-10.1); CARBON DIOXIDE LEVEL 30 MEQ/L (21-32); CHLORIDE LEVEL 103 MEQ/L (98-107); CREATININE FOR GFR 0.69 MG/DL (0.55-1.30); GLOMERULAR FILTRATION RATE > 60.0 (>51); GLUCOSE, FASTING 90 MG/DL (70-100); MAGNESIUM LEVEL 2.5 MG/DL (1.8-2.4); POTASSIUM SERUM 3.5 MEQ/L (3.5-5.1); SODIUM LEVEL 138 MEQ/L (136-145)
== END ==
LOC: M LABDRAWC 11:08
PROVIDERS: ATTEND Internal Medicine Hematology & Oncology
DX: C79.31 Secondary malignant neoplasm of brain (principal); R74.8 Abnormal levels of other serum enzymes; C43.59 Malignant melanoma of other part of trunk

== ENCOUNTER → 2021-07-06 | Outpatient (CLI) | payer OTHER ==
--- NOTE | 2021-07-07 09:27 | REP ---
INDICATION: MALIGNANT NEOPLASM OF OTHER PART OF TRUNK C34.59. Progressive brain metastatic disease. Assess for evidence of systemic metastasis prior to starting treatment. COMPARISON: Most recent comparison PET-CT study is from 14 January 2020. 28 November 2018 is also reviewed brain MRI study March 10, 2021 showed post craniotomy changes left inferior temporal lobe and a 1.1 cm enhancing nodule in the left parietal lobe... TECHNIQUE: Forty-eight minutes following the intravenous injection of a 9.26 mCi dose of F-18 FDG, three-dimensional PET scintigraphy is acquired from the skull vertex to the toes. Triplanar noncontrast CT scanning is acquired through the same anatomic range for attenuation correction, and image registration with scan parameters optimized to minimize radiation exposure to the patient. PET scintigraphy and CT datasets were fused and displayed on a workstation with multiplanar and projection display capability. FINDINGS: There are bilateral craniotomy defects seen in the calvarium. There is old encephalomalacia in the right temporal lobe. On accompanying CT, there is a 2.1 cm low-density area where previous MRI from Mar 10 2021 showed a metastatic lesion in the left parietal lobe. The low-density area appears somewhat larger. There is also low-density consistent with encephalomalacia at the inferior temporal lobe level on the left. These areas are photopenic relative to adjacent normal cortical metabolic uptake. In the head and neck soft tissues, there is no abnormal hypermetabolic uptake seen. No abnormal hypermetabolic uptake is seen within the thorax. No abdominal or pelvic hypermetabolic abnormality is appreciated. No abnormal extremity uptake is seen. IMPRESSION: No abnormal hypermetabolic uptake noted. Post craniotomy changes and photopenic areas noted in the left temporal lobe, left parietal lobe, and right temporal lobe as described above. <Electronically signed by Domenico Arango > 07/07/21 [id number]
== END ==
LOC: M PLARAD 13:23
PROVIDERS: ATTEND Internal Medicine Hematology & Oncology
DX: C79.31 Secondary malignant neoplasm of brain (principal); R74.8 Abnormal levels of other serum enzymes; C43.59 Malignant melanoma of other part of trunk
CPT/HCPCS: 78816; A9552

== ENCOUNTER → 2021-07-24 | Outpatient (REF) | payer OTHER ==
[~2021-07-24] MED LIST changes: +AZIT-10 PO; +DEXA1TA PO; +DEXA2TA PO; +DEXA5TA PO; +ELIQ5TAB PO; +FURO40TA2 PO; +LAMI25TA PO; +LAMO150T3 PO; +MECL-136 PO; +NYST50SS SS; +POTA-151 PO; +ZELB1TAB PO; +[UNRECOGNIZED DRUG - CODE] PO
[2021-07-24 12:26] LABS: BASO % 0.1 % (0.0-1.0); EOS % 0.1 % (0.0-3.0); HEMATOCRIT 32.1 % (36.0-47.0); HEMOGLOBIN 9.9 g/dl (12.0-15.5); LYMPH # 1.2 10^3/uL (1.5-5.0); LYMPH % 13.1 % (24.0-44.0); MEAN CORPUSCULAR HEMOGLOBIN 26.6 pg (27.0-33.0); MEAN CORPUSCULAR HGB CONC 30.8 g/dl (32.0-36.5); MEAN CORPUSCULAR VOLUME 86.3 fl (80.0-96.0); MONO # 0.4 10^3/uL (0.0-0.8); MONO % 4.4 % (2.0-8.0); NEUTROPHILS # 7.7 10^3/uL (1.5-8.5); NEUTROPHILS % 80.8 % (36.0-66.0); PLATELET COUNT, AUTOMATED 309 10^3/uL (150-450); RED BLOOD COUNT 3.72 10^6/uL (4.00-5.40); WHITE BLOOD COUNT 9.5 10^3/uL (4.0-10.0)
[2021-07-24 13:03] LABS: ALBUMIN 3.1 GM/DL (3.2-5.2); ALT/SGPT 68 U/L (12-78); BILIRUBIN,TOTAL 0.3 MG/DL (0.2-1.0); BLOOD UREA NITROGEN 21 MG/DL (7-18); CALCIUM LEVEL 8.2 MG/DL (8.5-10.1); CARBON DIOXIDE LEVEL 28 MEQ/L (21-32); CHLORIDE LEVEL 104 MEQ/L (98-107); CREATININE FOR GFR 0.85 MG/DL (0.55-1.30); GLOMERULAR FILTRATION RATE > 60.0 (>51); GLUCOSE, FASTING 129 MG/DL (70-100); MAGNESIUM LEVEL 2.3 MG/DL (1.8-2.4); POTASSIUM SERUM 3.1 MEQ/L (3.5-5.1); SODIUM LEVEL 140 MEQ/L (136-145); TOTAL PROTEIN 5.6 GM/DL (6.4-8.2)
== END ==
LOC: M LABDRAWC 11:53
PROVIDERS: ATTEND Internal Medicine Hematology & Oncology
DX: C79.31 Secondary malignant neoplasm of brain (principal); R74.8 Abnormal levels of other serum enzymes; C43.59 Malignant melanoma of other part of trunk

== ENCOUNTER 2021-07-26 05:31 | Emergency (ER) | payer OTHER ==
[~2021-07-26] VITALS: Ht 162.6 cm; Wt 95.1 kg
[~2021-07-26 05:31] MED LIST changes: -AZIT-10 PO; -DEXA1TA PO; -DEXA2TA PO; -DEXA5TA PO; -ELIQ5TAB PO; -FURO40TA2 PO; -LAMI25TA PO; -LAMO150T3 PO; -MECL-136 PO; -NYST50SS SS; -POTA-151 PO; -ZELB1TAB PO; -[UNRECOGNIZED DRUG - CODE] PO
[2021-07-26] MEDS ORDERED: ZELB1TAB PO (05:55)
[2021-07-26] MEDS ORDERED: [UNRECOGNIZED DRUG - CODE] PO (05:55)
[2021-07-26] MEDS ORDERED: diphenhydrAMINE 50MG/ML VIAL (J1200) IV STA (06:40)
[2021-07-26 08:49] LABS: BASO % 0.3 % (0.0-1.0); EOS % 0.2 % (0.0-3.0); HEMATOCRIT 32.3 % (36.0-47.0); HEMOGLOBIN 10.2 g/dl (12.0-15.5); LYMPH # 1.2 10^3/uL (1.5-5.0); LYMPH % 12.7 % (24.0-44.0); MEAN CORPUSCULAR HEMOGLOBIN 26.6 pg (27.0-33.0); MEAN CORPUSCULAR HGB CONC 31.6 g/dl (32.0-36.5); MEAN CORPUSCULAR VOLUME 84.1 fl (80.0-96.0); MONO # 0.5 10^3/uL (0.0-0.8); NEUTROPHILS # 7.5 10^3/uL (1.5-8.5); NEUTROPHILS % 79.7 % (36.0-66.0); PLATELET COUNT, AUTOMATED 287 10^3/uL (150-450); RED BLOOD COUNT 3.84 10^6/uL (4.00-5.40); WHITE BLOOD COUNT 9.5 10^3/uL (4.0-10.0)
--- NOTE | 2021-07-26 08:58 | REP ---
INDICATION: FLUID RETENTION/CHF WORKUP. COMPARISON: PA chest image, 06/02/2015. TECHNIQUE: Upright PA and lateral chest images were obtained. FINDINGS: There is cardiomegaly and aortic ectasia consistent with benign essential hypertension. There is no evidence of congestive heart failure. The lungs are clear. There are no pleural effusions. The upper abdominal bowel gas pattern is normal. There are no bony abnormalities of the chest. IMPRESSION: 1. Findings consistent with hypertension. 2. No evidence of acute cardiopulmonary pathology. No evidence of congestive heart failure. <Electronically signed by Sam Boyce > 07/26/21 [id number]
--- NOTE | 2021-07-26 09:03 | REP ---
INDICATION: LEG SWELLING/PAIN. COMPARISON: None. TECHNIQUE: 2D and color and pulse duplex Doppler ultrasound evaluation of the venous system of both lower extremities was performed. FINDINGS: Evaluation of the deep venous system of both lower extremities reveals no evidence of thrombosis. IMPRESSION: No evidence of deep venous thrombosis of either lower extremity. <Electronically signed by Sam Boyce > 07/26/21 [id number]
[2021-07-26 09:08] LABS: ERYTHROCYTE SEDIMENTATION RATE 6 mm/hr (0-30)
[2021-07-26 09:21] LABS: CK-MB VALUE MASS 12.9 NG/ML (<3.6); CPK CREATINE PHOSPHOKINASE 706 U/L (26-192); MB/CK RELATIVE INDEX 1.83 (< OR =4); NT-PRO BNP 19 PG/ML (<125); TROPONIN I < 0.02 NG/ML (< 0.10)
[2021-07-26 09:30] LABS: ALT/SGPT 73 U/L (12-78); BILIRUBIN,DIRECT 0.1 MG/DL (0.0-0.2); BILIRUBIN,TOTAL 0.4 MG/DL (0.2-1.0); BLOOD UREA NITROGEN 24 MG/DL (7-18); CALCIUM LEVEL 8.3 MG/DL (8.5-10.1); CARBON DIOXIDE LEVEL 30 MEQ/L (21-32); CHLORIDE LEVEL 102 MEQ/L (98-107); CREATININE FOR GFR 0.79 MG/DL (0.55-1.30); GLOMERULAR FILTRATION RATE > 60.0 (>51); GLUCOSE, FASTING 107 MG/DL (70-100); LIPASE 253 U/L (73-393); POTASSIUM SERUM 3.9 MEQ/L (3.5-5.1); SODIUM LEVEL 138 MEQ/L (136-145); TOTAL PROTEIN 5.6 GM/DL (6.4-8.2)
[2021-07-26] MEDS ORDERED: NS 500 ML IV ONE (10:00)
[2021-07-26 11:55] VITALS: BP 140/82
--- NOTE | 2021-07-26 17:24 | ECGEPIP ---
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
== END 2021-07-26 11:45 | disposition home or self-care (01) ==
LOC: M ED 05:31
DX: R22.41 Localized swelling, mass and lump, right lower limb (principal); D64.9 Anemia, unspecified; R74.8 Abnormal levels of other serum enzymes; R53.83 Other fatigue; M79.10 Myalgia, unspecified site; Z88.8 Allergy status to other drugs, medicaments and biological substances
CPT/HCPCS: 71046; 80048; 80076; 81001; 82550; 82553; 83690; 83880; 84484; 85025; 85652; 86140; 93005; 93970; 96360; 96361; 96374; 99284; J1200

== ENCOUNTER 2021-07-30 12:49 | Inpatient (IN) | payer OTHER ==
[~2021-07-30 12:49] MED LIST changes: +ZELB1TAB PO; +[UNRECOGNIZED DRUG - CODE] PO
[2021-07-30 13:17] LABS: BASO # 0.1 10^3/uL (0.0-0.2); BASO % 0.7 % (0.0-1.0); EOS # 0.1 10^3/uL (0.0-0.5); EOS % 0.8 % (0.0-3.0); HEMATOCRIT 35.8 % (36.0-47.0); HEMOGLOBIN 11.1 g/dl (12.0-15.5); LYMPH # 3.2 10^3/uL (1.5-5.0); LYMPH % 24.2 % (24.0-44.0); MEAN CORPUSCULAR HEMOGLOBIN 26.6 pg (27.0-33.0); MEAN CORPUSCULAR VOLUME 85.9 fl (80.0-96.0); MONO # 0.9 10^3/uL (0.0-0.8); MONO % 6.8 % (2.0-8.0); NEUTROPHILS # 8.4 10^3/uL (1.5-8.5); NEUTROPHILS % 62.8 % (36.0-66.0); PLATELET COUNT, AUTOMATED 341 10^3/uL (150-450); RED BLOOD COUNT 4.17 10^6/uL (4.00-5.40); WHITE BLOOD COUNT 13.3 10^3/uL (4.0-10.0)
--- NOTE | 2021-07-30 13:28 | REP ---
INDICATION: multiple seizures. History of melanoma. COMPARISON: May 29, 2015 and July 14, 2014. Comparison MRI study March 10, 2021. TECHNIQUE: Helical scanning is acquired. 5 mm axial images were reformatted. Coronal MPR images were generated. FINDINGS: Digital preliminary baseball scout radiographs demonstrate evidence of bilateral craniotomy. Bone window settings confirm bilateral temporal craniotomy in sites. The left temporal craniotomy has been performed in the interval since the 2014 prior study. No acute bony abnormality is seen. Visualized paranasal sinuses are clear. No intraorbital abnormality is seen. There is a large area of chronic encephalomalacia in the inferior temporal lobe on the right which is unchanged. There is low-density and possible bone destruction in the left temporal lobe which is new compared to the prior CT study and which corresponds with a heterogeneously enhancing mass on MRI study of March 10, 2021. This area measures 3.1 x 2.2 x 3.6 cm in anteroposterior by medial to lateral by craniocaudal span respectively. In addition, there is a low-density intra-axial mass at the top of the sylvian fissure in the left posterior frontal lobe which is also new from the CT study of 2014. This measures 2.3 x 1.7 x 2.4 cm. This corresponds to an enhancing metastatic nodule seen on the March 10, 2021 study although it measured 1.1 cm at that time. It appears to have enlarged. No other intracranial mass lesion is observed. There is no evidence of intracranial hemorrhage or acute infarction. No extra-axial fluid collection is seen. IMPRESSION: Two enlarging mass lesions, 1 in the left inferior temporal lobe and the other in the left posterior frontal lobe at the top of the sylvian fissure. Both of these lesions appear a little more prominent than on the March 10, 2021 MRI images. <Electronically signed by Domenico Arango > 07/30/21 [id number]
--- NOTE | 2021-07-30 13:51 | REP ---
INDICATION: Status Epilepticus. COMPARISON: 07/26/2021. TECHNIQUE: Single portable AP view of the chest was performed. FINDINGS: There is poor ventilation. There is no evidence of acute infiltrate. Cardiomegaly is again noted. The mediastinal silhouette is grossly unchanged. IMPRESSION: No acute pulmonary disease.Cardiomegaly. <Electronically signed by Jose E Gold > 07/30/21 [id number]
[2021-07-30] MEDS ORDERED: KCL 10MEQ/100ML SWI (KRUN) 10 MEQ in IV 1 EA IV ONE (14:05)
[2021-07-30 14:06] LABS: ALBUMIN 3.4 GM/DL (3.2-5.2); ALT/SGPT 86 U/L (12-78); BILIRUBIN,DIRECT < 0.1 MG/DL (0.0-0.2); BILIRUBIN,TOTAL 0.4 MG/DL (0.2-1.0); BLOOD UREA NITROGEN 21 MG/DL (7-18); CARBON DIOXIDE LEVEL 23 MEQ/L (21-32); CHLORIDE LEVEL 95 MEQ/L (98-107); CREATININE FOR GFR 1.26 MG/DL (0.55-1.30); GLOMERULAR FILTRATION RATE 46.6 (>51); GLUCOSE, FASTING 193 MG/DL (70-100); MAGNESIUM LEVEL 1.9 MG/DL (1.8-2.4); PHOSPHORUS LEVEL 5.9 MG/DL (2.5-4.9); POTASSIUM SERUM 2.9 MEQ/L (3.5-5.1); SODIUM LEVEL 136 MEQ/L (136-145); TOTAL PROTEIN 6.2 GM/DL (6.4-8.2)
[2021-07-30 14:06] LABS: AMPHETAMINES LEVEL URINE NEGATIVE (NEGATIVE); BARBITURATES URINE NEGATIVE (NEGATIVE); BENZODIAZEPINES URINE POSITIVE (NEGATIVE); CANNABINOIDS URINE NEGATIVE (NEGATIVE); COCAINE METABOLITE URINE NEGATIVE (NEGATIVE); METHADONE URINE NEGATIVE (NEGATIVE); OPIATES URINE NEGATIVE (NEGATIVE); PHENCYCLIDINE URINE NEGATIVE (NEGATIVE)
[2021-07-30] MEDS ORDERED: NS 1,000 ML IV SCH (14:45)
[2021-07-30] MEDS ORDERED: DEXA1TA PO (15:09)
[2021-07-30] MEDS ORDERED: LAMO150T3 PO (15:09)
[2021-07-30] MEDS ORDERED: HOME MED LIST COMPLETE! XX SCH (15:10)
[2021-07-30 16:03] LABS: RSV AMPLIFICATION NEGATIVE (NEGATIVE)
[2021-07-30] MEDS ORDERED: PILL CUTTER 1 EACH XX PRN ×2 (17:35→20:00)
--- NOTE | 2021-07-30 19:52 | HPEPDOC ---
[facility] Medical History & Physical Date of Admission Jul 30, 2021 Date of Service: Jul 30, 2021 History and Physical CHIEF COMPLAINT: Seizure HISTORY OF PRESENT ILLNESS: Patient is a 56-year-old female with a past medical history of stage IV metastatic melanoma with known mets to the brain. She was eating lunch at [facility] [employer] [facility] when she had a seizure. EMS was called. Apparently she had approximately 4 seizures without return to baseline, and then she was certainly postictal while in the emergency department. By the time I came and spoke to her she seemed to be coming out of her postictal state. She does not remember anything from today, and believes that she just went to sleep last night and woke up here in the emergency department. CODE STATUS: Full code PAST MEDICAL HISTORY: Known past medical history of temporal lobe epilepsy Stage IV metastatic melanoma with known metastases to the brain PAST SURGICAL HISTORY: 2001 Temporal lobe resection with titanium plates 2008 Brain surgery for tumor resection malignant melanoma 2013 Colonoscopy 2015 Brain surgery for recurrence of metastases 02/19/2021 SOCIAL HISTORY: Non-smoker, she reports that she was not drinking alcohol recently, therefore she indicates that this would not be a cause of her seizure. In the medical record it appears that she used to have an alcoholic drink perhaps 2-3 times a week. Denies drug use. FAMILY HISTORY: Father had pituitary tumor, hypertension, prostate cancer. Mother has cardiac disease, myocardial infarction at age 65, diabetes, diverticulitis, pacemaker, diabetes. She had a brother who from suicide. REVIEW OF SYSTEMS: Review of systems actually somewhat difficult to obtain, she just keeps saying that she does not know what happened. She is not complaining of any pain at this time. She was otherwise in her usual state of health prior to her seizure, and has not been feeling ill recently. PHYSICAL EXAMINATION: General: Awake, alert, appears to be oriented, or at least she is gaining cla rity. HEENT: Head normocephalic atraumatic, conjunctiva are pink, sclera are nonicteric, buccal mucosa is pink and moist it appears that she may have bitten the right side of her tongue, it is not bleeding at this time. Hearing is grossly intact to conversation. Respiratory: Clear to auscultation bilaterally with no wheezes, rales, or rhonchi. Cardiovascular: Regular rate and rhythm, with no rubs, gallops, or murmur. Abdomen: Soft, nontender, nondistended, no hepatosplenomegaly appreciated. Bowel sounds present. Extremities: 2+ pulses in the radial and dorsalis pedis bilaterally. No evidence of clubbing or cyanosis. Neuro: Sensation intact throughout. She does have coordination of all 4 limbs. Muscle strength is 5/5 throughout the bilateral upper and lower extremities. No pronator drift. IMAGING: CT of the head without contrast IMPRESSION: Two enlarging mass lesions, 1 in the left inferior temporal lobe and the other in the left posterior frontal lobe at the top of the sylvian fissure. Both of these lesions appear a little more prominent than on the March 10, 2021 MRI images. ASSESSMENT/PLAN: Seizure with known history of prior temporal lobe seizures -Neurology was contacted by the ED provider. For now we will keep her on her same home dose of lamotrigine, and order levels. -Seizure precautions, and will continue to monitor Two enlarging mass lesions in the brain -She follows with Dr. Armstrong radiation oncology. Her most recent visit was on 06/23/2021. 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 There was some expectation of minimal additional growth of the lesion as the internal blood product is absorbed. We will try and reach out to their office tomorrow to notify them of her current status. DVT prophylaxis with teds and sequential Vital Signs Vital Signs Date Time Temp Pulse Resp B/P (MAP) Pulse Ox O2 Delivery O2 Flow Rate FiO2 07/30/21 17:50 68 98 07/30/21 16:15 150/70 (96) 07/30/21 13:49 97.2 07/30/21 13:34 20 Room Air Laboratory Data Labs 24H Laboratory Tests 2 07/30/21 13:00: Anion Gap 18H, Glomerular Filtration Rate 46.6L, Calcium Level 9.0, Phosphorus Level 5.9H, Magnesium Level 1.9, Total Bilirubin 0.4, Direct Bilirubin < 0.1, Aspartate Amino Transf (AST/SGOT) 33, Alanine Aminotransferase (ALT/SGPT) 86H, Alkaline Phosphatase 110, Total Protein 6.2L, Albumin 3.4, Albumin/Globulin Ratio 1.2 07/30/21 13:01: Immature Granulocyte % (Auto) 4.7H, Neutrophils (%) (Auto) 62.8, Lymphocytes (%) (Auto) 24.2, Monocytes (%) (Auto) 6.8, Eosinophils (%) (Auto) 0.8, Basophils (%) (Auto) 0.7, Neutrophils # (Auto) 8.4, Lymphocytes # (Auto) 3.2, Monocytes # (Auto) 0.9H, Eosinophils # (Auto) 0.1, Basophils # (Auto) 0.1, Nucleated Red Blood Cells % (auto) 0.4H 07/30/21 13:16: Bedside Glucose ([facility]) 149H 07/30/21 13:25: Urine Color YELLOW, Urine Appearance HAZY, Urine pH 5.0, Urine Specific [place] 1.019, Urine Protein 2+H, Urine Glucose (UA) NEGATIVE, Urine Ketones NEGATIVE, Urine Blood 2+H, Urine Nitrite NEGATIVE, Urine Bilirubin NEGATIVE, Urine Urobilinogen 0.2, Urine Leukocyte Esterase NEGATIVE, Urine WBC (Auto) 2, Urine RBC (Auto) 24H, Urine Hyaline Casts (Auto) 20, Urine Bacteria (Auto) NEGATIVE, Urine Squamous Epithelial Cells 1, Urine Mucus (Auto) SMALL, Urine Sperm (Auto) , Urine Opiates Screen NEGATIVE, Urine Methadone Screen NEGATIVE, Urine Barbiturates Screen NEGATIVE, Urine Phencyclidine Screen NEGATIVE, Urine Amphetamines Screen NEGATIVE, Urine Benzodiazepines Screen POSITIVEH, Urine Cocaine Metabolite Screen NEGATIVE, Urine Cannabinoids Screen NEGATIVE 07/30/21 13:26: 07/30/21 15:03: Coronavirus (COVID-19)(PCR) NEGATIVE, Influenza Type A (RT-PCR) NEGATIVE, Influenza Type B (RT-PCR) NEGATIVE, Respiratory Syncytial Virus (PCR) NEGATIVE CBC/BMP Laboratory Tests 07/30/21 13:00 07/30/21 13:01 Home Medications Scheduled Cobimetinib Fumarate (Cotellic) 20 Mg Tablet, 60 MG PO DAILY ON HOLD PER ONCOLOGIST SINCE 07/28 Dexamethasone (Dexamethasone) 1 Mg Tablet, 1.5 MG PO BID Lamotrigine (Lamotrigine) 150 Mg Tablet, 150 MG PO BID Pantoprazole Sodium (Protonix) 40 Mg Tablet.dr, 40 MG PO DAILY Vemurafenib (Zelboraf) 240 Mg Tablet, 240 MG PO BID ON HOLD PER ONCOLOGIST SINCE 07/28 Allergies Coded Allergies: carbamazepine (Verified Allergy, Mild, rash, 12/21/19) triamcinolone (Verified Allergy, Unknown, ITCH,RASH, 07/30/21) A-FIB/CHADSVASC A-FIB History Current/History of A-Fib/PAF?: No ANGELA GARDNER DO Jul 30, 2021 19:52
[2021-07-30 20:00] VITALS: BP 146/81
[2021-07-30] MEDS: ACETAMINOPHEN TAB 650MG DOSE (2X325MG) PO PRN (20:24)
[2021-07-30] MEDS: lamoTRIgine 100MG TAB PO SCH (20:24)
--- NOTE | 2021-07-31 00:17 | ECGEPIP ---
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
[2021-07-31 06:00] VITALS: BP 129/70
[2021-07-31 06:25] LABS: HEMATOCRIT 31.5 % (36.0-47.0); MEAN CORPUSCULAR HEMOGLOBIN 26.6 pg (27.0-33.0); MEAN CORPUSCULAR HGB CONC 31.7 g/dl (32.0-36.5); MEAN CORPUSCULAR VOLUME 83.8 fl (80.0-96.0); PLATELET COUNT, AUTOMATED 255 10^3/uL (150-450); RED BLOOD COUNT 3.76 10^6/uL (4.00-5.40); WHITE BLOOD COUNT 7.4 10^3/uL (4.0-10.0)
[2021-07-31 06:42] LABS: BLOOD UREA NITROGEN 14 MG/DL (7-18); CALCIUM LEVEL 8.5 MG/DL (8.5-10.1); CARBON DIOXIDE LEVEL 35 MEQ/L (21-32); CHLORIDE LEVEL 98 MEQ/L (98-107); CREATININE FOR GFR 0.73 MG/DL (0.55-1.30); GLOMERULAR FILTRATION RATE > 60.0 (>51); GLUCOSE, FASTING 107 MG/DL (70-100); SODIUM LEVEL 139 MEQ/L (136-145)
--- NOTE | 2021-07-31 08:14 | RADENCPD ---
Date/Time of Encounter Date of Encounter: Jul 31, 2021 Time of Encounter: 08:01 Encounter Note her admission for breakthrough seizure. I have reviewed her most recent CT head which shows the hemorrhagic cavity in the left frontal lobe is reduced compared to 06/16/21 MRI, this is likely the result of absorbed blood product. She has been on dual BRAF/MEK inhibitors which have potent intracranial activity so the possibility of occult metastases developing in the last month is remote and in the absence of gross new abnormality on the recent CT, I do not think repeat MRI is warranted at this time unless she fails to remain seizure-free with increase in her lamictal. Her neuro-oncologist Dr. Muhammad at [facility] has been managing her decadron and lamictal dosing. Their service is highly responsive, their transportation analyst too are excellent at helping manage these things. I would suggest contacting him for next steps regarding AEDs, but in the meantime I suggest increasing the decadron dose to 4 mg BID while she is inpatient. If she remains seizure-free and Dr Muhammad adjusts her lamictal dosing, then she could be discharged on 2 mg BID decadron which was the last steroid dose she was on which kept her symptom/seizure free. I will arrange a follow-up with me for within one week post-discharge. I will follow along. MARY MEZA MD Jul 31, 2021 08:14
[2021-07-31] MEDS ORDERED: PANTOPRAZOLE 40MG TAB (PROTONIX) PO SCH (09:00)
[2021-07-31] MEDS: lamoTRIgine 100MG TAB PO SCH (09:50)
[2021-07-31] MEDS: ACETAMINOPHEN TAB 650MG DOSE (2X325MG) PO PRN (09:50)
[2021-07-31] MEDS ORDERED: POTASSIUM CHLORIDE 10MEQ SR TABLET PO ONE ×2 (10:20→18:00)
[2021-07-31] MEDS ORDERED: diphenhydrAMINE CREAM 30GM TOP PRN (11:10)
[2021-07-31] MEDS ORDERED: DEXA1TA PO (12:55)
[2021-07-31] MEDS ORDERED: LAMI25TA PO (12:55)
--- NOTE | 2021-07-31 13:27 | DS.PDOC ---
Discharge Summary General Date of Admission Jul 30, 2021 at 17:15 Date of Discharge 07/31/2021 Discharge Summary PRIMARY CARE PHYSICIAN: Elli Chavarria ATTENDING AT TIME OF DISCHARGE: Dr. 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 She apparently did have what seems to be 3-4 subsequent seizures without return to baseline over the course of 10-15 minutes. She was given Versed in the emergency department. She did have a postictal state for approximately 1 hour. In the last 24 hours she has not had any additional seizure-like activity. CT of the head without contrast in ED showed 2 enlarging mass lesions, both of these lesions were known previously. After discussing the case with her radiation oncologist, he feels that the masses have actually dec reased in size, but that the surrounding edema has likely increased. I have called and discussed the case with both her radiation oncologist locally, as well as her neuro oncologist in [place], and they feel that an increase in her steroids is certainly advisable. She has been stable on dexamethasone 2 mg twice daily since her surgery earlier this year, and then just recently they were beginning to lower her dose of steroids when the seizure happened. After discussion with her neuro oncologist he also recommends that we increase her dose of Lamictal from 150 mg twice daily to 175 mg twice daily and that she have close follow-up in both their office and the office of her neurologist. PHYSICAL EXAMINATION ON DISCHARGE: GENERAL: Awake, alert, oriented x3. She is not in any acute distress at this time. CARDIOVASCULAR EXAMINATION: Regular rate and rhythm, with no rubs, gallops, or murmur. RESPIRATORY EXAMINATION: Clear to auscultation bilaterally with no wheezes, rales, or rhonchi. ABDOMINAL EXAMINATION: Soft, nontender, nondistended. Bowel sounds present. EXTREMITIES: No clubbing or edema noted. 2+ pulses in the radial bilaterally. NEURO: She was moving all 4 extremities, 5/5 strength throughout the bilateral upper and lower extremities. No coordination issues. No residual neurological deficits noted from her seizure. DISPOSITION: Home DISCHARGE INSTRUCTIONS: Follow-up with PCP, Dr. Armstrong, Neurologist Dr. Cheli Pitts in [place] office phone , Dr. Hosea Muhammad Neuroradiologist office , & Medical Oncologist Dr. Meenu Romero MD in [place] [phone]. Diet as tolerated. Activity as tolerated, certainly cannot drive. If symptoms return, or if you experience worsening of your symptoms, please call your doctor or return to the emergency department. Vital Signs/I&Os Vital Signs Date Time Temp Pulse Resp B/P (MAP) Pulse Ox O2 Delivery O2 Flow Rate FiO2 07/31/21 06:00 97.5 75 17 129/70 (89) 96 Room Air I&O- Last 24 Hours up to 6 AM 07/31/21 06:00 Intake Total 760 ml Output Total 1200 ml Balance -440 ml Laboratory Data Labs 24H Laboratory Tests 2 07/30/21 15:03: Coronavirus (COVID-19)(PCR) NEGATIVE, Influenza Type A (RT-PCR) NEGATIVE, Influenza Type B (RT-PCR) NEGATIVE, Respiratory Syncytial Virus (PCR) NEGATIVE 07/31/21 05:32: Nucleated Red Blood Cells % (auto) 0.3H, Anion Gap 6L, Glomerular Filtration Rate > 60.0, Calcium Level 8.5 CBC/BMP Laboratory Tests 07/31/21 05:32 Discharge Medications Scheduled Cobimetinib Fumarate (Cotellic) 20 Mg Tablet, 60 MG PO DAILY, (Reported) ON HOLD PER ONCOLOGIST SINCE 07/28 Dexamethasone (Dexamethasone) 1 Mg Tablet, 2 MG PO BID Lamotrigine (Lamotrigine) 150 Mg Tablet, 150 MG PO BID, (Reported) Lamotrigine (Lamictal) 25 Mg Tablet, 1 TAB PO BID Take in addition to 150mg BID for a total of 175mg BID Pantoprazole Sodium (Protonix) 40 Mg Tablet.dr, 40 MG PO DAILY, (Reported) Vemurafenib (Zelboraf) 240 Mg Tablet, 240 MG PO BID, (Reported) ON HOLD PER ONCOLOGIST SINCE 07/28 Allergies Coded Allergies: carbamazepine (Verified Allergy, Mild, rash, 12/21/19) triamcinolone (Verified Allergy, Unknown, ITCH,RASH, 07/30/21) JOSE E GARDNER DO Jul 31, 2021 13:27
== END 2021-07-31 15:12 | disposition home or self-care (01) | DRG 101 ==
LOC: M ED 12:49 → EDBD 12:49 → M ED INP 17:15 → ENRESERV 19:01 → M MSPAV 19:52
PROVIDERS: ADMIT Neuromusculoskeletal Medicine & OMM; ATTEND Neuromusculoskeletal Medicine & OMM
DX: G40.409 Other generalized epilepsy and epileptic syndromes, not intractable, without status epilepticus (principal); C79.31 Secondary malignant neoplasm of brain; Z20.822 Contact with and (suspected) exposure to COVID-19; Z79.899 Other long term (current) drug therapy; Z88.8 Allergy status to other drugs, medicaments and biological substances

== ENCOUNTER → 2021-08-03 | Outpatient (REF) | payer OTHER ==
[~2021-08-03] MED LIST changes: +DEXA1TA PO; +LAMI25TA PO; +LAMO150T3 PO
[2021-08-03 19:10] LABS: BLOOD UREA NITROGEN 21 MG/DL (7-18); CALCIUM LEVEL 9.2 MG/DL (8.5-10.1); CARBON DIOXIDE LEVEL 34 MEQ/L (21-32); CHLORIDE LEVEL 99 MEQ/L (98-107); CK-MB VALUE MASS 5.8 NG/ML (<3.6); CPK CREATINE PHOSPHOKINASE 222 U/L (26-192); CREATININE FOR GFR 0.82 MG/DL (0.55-1.30); GLOMERULAR FILTRATION RATE > 60.0 (>51); GLUCOSE, FASTING 100 MG/DL (70-100); MB/CK RELATIVE INDEX 2.61 (< OR =4); POTASSIUM SERUM 3.5 MEQ/L (3.5-5.1); SODIUM LEVEL 138 MEQ/L (136-145)
== END ==
LOC: M SFHCCLAY 10:36
PROVIDERS: ATTEND Nurse Practitioner Family
DX: G40.209 Localization-related (focal) (partial) symptomatic epilepsy and epileptic syndromes with complex partial seizures, not intractable, without status epilepticus (principal); C79.31 Secondary malignant neoplasm of brain; E87.6 Hypokalemia; R74.8 Abnormal levels of other serum enzymes

== ENCOUNTER → 2021-08-11 | Outpatient (CLI) | payer OTHER ==
[~2021-08-11] MED LIST changes: +LIDOCAINE 1% MDV 20ML VIAL As Ordered ONE; +fentaNYL 100 MCG/2 ML INJECTION (J3010) As Ordered ONE
--- NOTE | 2021-08-11 16:39 | RADONC ---
Radiation Oncology Hx/FUP Radiation Oncology Hx/FUP Date of Service: Aug 11, 2021 Pt Identifier Gabriella Moody is a 56 year old female seen for a followup visit today at the department of radiation oncology for a history of epilepsy and stage IIIA melanoma of the trunk and right axillary nodes, treated in 2013 with resection and adjuvant interferon (Dr. Corrigan @ [facility]), who presented to her PCP in February 2021 with new-onset AYALA and word finding difficulties. MRI on 02/16/21 showed a left temporal hemorrhagic metastases as well as a smaller left frontal lobe lesion. She was transferred to [facility] (where her prior epilepsy surgery had been performed) where she underwent resection of the left temporal mass on 02/19/[address] Simmons. Pathology showed metastatic melanoma. She completed SRS 30 Gy in 5 fractions to the left temporal lobe cavity and intact left frontal lobe lesion on 03/20/21. Diagnosis/Treatment History Oncologic History 01/23/14 Diagnosed with stage IIIA melanoma of the right trunk (upper back), SLNB+ right neck. She declined site-directed RT. 05/13/14-06/14/14 Adjuvant IV interferon. 06/14/14 Had 1 dose of subcutaneous interferon at home c/b seizure or encephalopathy. She discontinued interferon. 07/19/14 MRI head negative 10/02/14 PET-CT negative 03/20/15 PET-CT negative 09/25/15 PET-CT negative 03/25/16 PET-CT negative 10/20/16 PET-CT negative 05/17/17 PET-CT negative 11/23/17 PET-CT negative 11/28/18 PET-CT negative 01/14/20 PET-CT negative in body, asymmetrical uptake in the left temporal lobe 02/16/21 MRI brain 5 cm left temporal lesion, 1.2 cm left frontal lesion Resection [facility] Dr. Simmons metastatic melanoma 02/20/21 Post-op MRI [facility] Residual edema and 1.2 cm left frontal lesion 03/16/21-03/20/21 SRS 30 Gy in 5 fractions dose constraints met per TE Interval History Gabriella is seen today s/p recent brief hospital admission for a breakthrough seizure on 07/31/21. She was at [facility] subs eating and had a generalized seizure. She was post-ictal for some time thereafter. She had decreased her morning decadron dose from 2 mg to 1.5 mg the morning of the seizure. Dr. Haddad ([facility] neuro onc) increased her dose back to 2 mg BID. He also increased her lamictal dose as well. He would if we would manage the decadron locally as well as the MRI surveillance. She has been seizure-free and otherwise at neurologic baseline since the decadron was increased back up. She has been having problems with her MEK/BRAF therapy, she had a photocutaneous reaction which was severe. She also has been having leg pains and swelling. Her dose has been adjusted down. Current Therapy Encorafenib/binimetinib Stage Melanoma stage IV Social History: Never smoker Active drinker 2-3 drinks per day ~2 days per week Allergies / Meds Allergies: Coded Allergies: carbamazepine (Verified Allergy, Mild, rash, 12/21/19) triamcinolone (Verified Allergy, Unknown, ITCH,RASH, 07/30/21) Home Meds Active Scripts Lamotrigine (Lamictal) 25 Mg Tablet, 1 TAB PO BID for 30 Days, #60 TAB Take in addition to 150mg BID for a total of 175mg BID Prov:ANGELA GARDNER DO 07/31/21 Dexamethasone (Dexamethasone) 1 Mg Tablet, 2 MG PO BID for 14 Days, #56 TAB Prov:ANGELA GARDNER DO 07/31/21 Reported Medications Lamotrigine (Lamotrigine) 150 Mg Tablet, 150 MG PO BID 07/30/21 Cobimetinib Fumarate (Cotellic) 20 Mg Tablet, 60 MG PO DAILY ON HOLD PER ONCOLOGIST SINCE 07/2807/26/21 Vemurafenib (Zelboraf) 240 Mg Tablet, 240 MG PO BID ON HOLD PER ONCOLOGIST SINCE 07/2807/26/21 Pantoprazole Sodium (Protonix) 40 Mg Tablet., 40 MG PO DAILY 05/18/21 Review of Systems Review of Systems Constitutional: Reports: Fatigue; Denies: Weight Loss Eyes: Denies: Pain, Vision change HEENT: Denies: Head Aches Skin: Reports: Rash, Lesions Pulmonary: Denies: Dyspnea, Cough Cardiovascular: Denies: Chest Pain Gastrointestinal: Denies: Abdominal Pain Hematologic: Reports: Bruising; Denies: Petecchia Endocrine: Denies: Cold Intolerance Musculoskeletal: Denies: Neck pain, Back pain Neurological: Denies: Weakness, Numbness, Change in Speech, Seizures Psych: Reports: Mood Normal Physical Examination Vital Signs Wt 208 lbs T 98.2 P 81 RR 18 BP 158/90 O2 100% Pain 0 Fatigue 0 General Exam: Alert, Cooperative, No Acute Distress Eye Exam: PERRLA EOMI ENT EXAM: Atraumatic Neck Exam: Supple Chest Exam: Clear to auscultation Heart Exam: Rate Normal Extremity Exam: Negative: Edema Skin Exam: Rash (Healing sunburn evident BL forearms) Neuro Exam: Normal Gait, Normal Speech, Cranial Nerves 3-12 NL Psych Exam: Mental status NL Diagnostic and Laboratory Diagnostic Review Radiologic images, relevant labs and pathology reports were personally reviewed and discussed with Ms. Moody. Assessment and Plan Impression Assessment Ms. Moody is a 56 year old female with a history of epilepsy and stage IIIA melanoma of the trunk and right axillary nodes, treated in 2013 with resection and adjuvant interferon (Dr. Corrigan @ [facility]), who presented to her PCP in February 2021 with new-onset AYALA and word finding difficulties. MRI on 02/16/21 showed a left temporal hemorrhagic metastases as well as a smaller left frontal lobe lesion. She was transferred to [facility] (where her prior epilepsy surgery had been performed) where she underwent resection of the left temporal mass on 02/19/[address] Simmons. Pathology showed metastatic melanoma. She completed SRS 30 Gy in 5 fractions to the left temporal lobe cavity and intact left frontal lobe lesion on 03/20/21. 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 Given latency from SRS and 'soap bubble' appearance. In addition I extolled that MEK/BRAF inhibitor therapy is highly effective in the [employer], which is further hedge against the presence of intracranial disease. However, she is very symptomatic from the necrosis and the decrease in decadron correlates with her seizure exactly, I agree with remaining on 2 mg BID decadron for the time being until next MRI is done. Where if there are stable findings I will initiate an extremely slow taper. I also discussed the alternatives to decadron for the management of refractory necrosis; Avastin and resection. Both of these are drastic options and I do not recommend them without a more earnest attempt at a steroid wean. Tong and Gabriella agreed to proceed. Her next MRI will be 09/22/21 and she is scheduled to see me again on 09/29/21. Performance Status ECOG 1 Plan Continue decadron 2 mg BID until instructed otherwise MRI head 09/22/21 Follow up 09/29/21 Ms. Moody was encouraged to call with questions or concerns in the interim period. Billing Statement Total time of [27] minutes was spent preparing for the visit [2], obtaining HPI [5], examining the patient [2], reviewing diagnostic tests [3], discussing management options [17], coordinating care [2], and writing this note [6]. MARY MEZA MD Aug 11, 2021 16:38
== END ==
LOC: M ONCR 15:02
PROVIDERS: ATTEND General Practice
DX: C79.31 Secondary malignant neoplasm of brain (principal); G40.909 Epilepsy, unspecified, not intractable, without status epilepticus; Z79.899 Other long term (current) drug therapy; Z85.820 Personal history of malignant melanoma of skin; Z92.3 Personal history of irradiation

== ENCOUNTER → 2021-08-11 | Outpatient (REF) | payer OTHER ==
[~2021-08-11] MED LIST changes: -LIDOCAINE 1% MDV 20ML VIAL As Ordered ONE; -fentaNYL 100 MCG/2 ML INJECTION (J3010) As Ordered ONE
[2021-08-11 14:00] LABS: BASO % 0.1 % (0.0-1.0); HEMATOCRIT 31.7 % (36.0-47.0); HEMOGLOBIN 9.9 g/dl (12.0-15.5); LYMPH # 0.9 10^3/uL (1.5-5.0); LYMPH % 13.5 % (24.0-44.0); MEAN CORPUSCULAR HEMOGLOBIN 26.4 pg (27.0-33.0); MEAN CORPUSCULAR HGB CONC 31.2 g/dl (32.0-36.5); MEAN CORPUSCULAR VOLUME 84.5 fl (80.0-96.0); MONO # 0.5 10^3/uL (0.0-0.8); MONO % 6.8 % (2.0-8.0); NEUTROPHILS # 5.4 10^3/uL (1.5-8.5); NEUTROPHILS % 78.4 % (36.0-66.0); PLATELET COUNT, AUTOMATED 344 10^3/uL (150-450); RED BLOOD COUNT 3.75 10^6/uL (4.00-5.40); WHITE BLOOD COUNT 6.9 10^3/uL (4.0-10.0)
[2021-08-11 15:45] LABS: ALBUMIN 3.3 GM/DL (3.2-5.2); BILIRUBIN,TOTAL 0.5 MG/DL (0.2-1.0); CALCIUM LEVEL 9.1 MG/DL (8.5-10.1); CREATININE FOR GFR 1.03 MG/DL (0.55-1.30); GLOMERULAR FILTRATION RATE 58.8 (>51); POTASSIUM SERUM 3.3 MEQ/L (3.5-5.1); TOTAL PROTEIN 5.8 GM/DL (6.4-8.2)
== END ==
LOC: M LABDRAWC 12:11
PROVIDERS: ATTEND Internal Medicine Hematology & Oncology
DX: C43.59 Malignant melanoma of other part of trunk (principal); C79.31 Secondary malignant neoplasm of brain; R74.8 Abnormal levels of other serum enzymes

== ENCOUNTER → 2021-08-24 | Outpatient (REF) | payer OTHER | LOC: M LABDRAWP 15:47 | PROVIDERS: ATTEND Nurse Practitioner | DX: G40.119 Localization-related (focal) (partial) symptomatic epilepsy and epileptic syndromes with simple partial seizures, intractable, without status epilepticus (principal) ==

== ENCOUNTER → 2021-08-28 | Outpatient (CLI) | payer OTHER ==
--- NOTE | 2021-08-28 12:20 | RADENCPD ---
Date/Time of Encounter Date of Encounter: Aug 28, 2021 Time of Encounter: 12:16 Encounter Gabriella came in for a brief follow up today for concern of swelling in her face. The swelling is painless, has been ongoing for some weeks. No associated rhinorrhea or infectious symptoms. 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 I counseled that these sequelae are typical and that there is no immediate remedy given her ongoing steroid dependence. From a neurological standpoint she is AYALA and weakness-free, and she is mentating at baseline. She has resolving skin reaction from her BRAF/MEK inhibitors on her forearms BL. She has had no additional seizures. We discussed the plan to follow up in September after her next MRI and consider a glacially slow steroid taper at that time. She has PCP and ophthalmology follow up in the meantime. She is welcome to call anytime with any concerns. MARY MEZA MD Aug 28, 2021 12:20
== END ==
LOC: M ONCR 11:35
PROVIDERS: ATTEND General Practice
DX: C79.31 Secondary malignant neoplasm of brain (principal); L59.8 Other specified disorders of the skin and subcutaneous tissue related to radiation; Z79.52 Long term (current) use of systemic steroids; Z92.3 Personal history of irradiation

== ENCOUNTER → 2021-09-17 | Outpatient (REF) | payer OTHER ==
[~2021-09-17] MED LIST changes: +AZIT-10 PO; +NYST50SS SS
[2021-09-17 11:33] LABS: BASO % 0.1 % (0.0-1.0); HEMATOCRIT 26.4 % (36.0-47.0); HEMOGLOBIN 8.1 g/dl (12.0-15.5); LYMPH % 14.5 % (24.0-44.0); MEAN CORPUSCULAR HEMOGLOBIN 25.7 pg (27.0-33.0); MEAN CORPUSCULAR HGB CONC 30.7 g/dl (32.0-36.5); MEAN CORPUSCULAR VOLUME 83.8 fl (80.0-96.0); MONO # 0.4 10^3/uL (0.0-0.8); MONO % 5.7 % (2.0-8.0); NEUTROPHILS # 5.3 10^3/uL (1.5-8.5); NEUTROPHILS % 77.4 % (36.0-66.0); PLATELET COUNT, AUTOMATED 351 10^3/uL (150-450); RED BLOOD COUNT 3.15 10^6/uL (4.00-5.40); WHITE BLOOD COUNT 6.8 10^3/uL (4.0-10.0)
[2021-09-17 12:01] LABS: ALBUMIN 3.4 GM/DL (3.2-5.2); ALT/SGPT 65 U/L (12-78); BILIRUBIN,TOTAL 0.6 MG/DL (0.2-1.0); BLOOD UREA NITROGEN 18 MG/DL (7-18); CALCIUM LEVEL 9.3 MG/DL (8.5-10.1); CARBON DIOXIDE LEVEL 35 MEQ/L (21-32); CHLORIDE LEVEL 98 MEQ/L (98-107); CREATININE FOR GFR 0.99 MG/DL (0.55-1.30); GLOMERULAR FILTRATION RATE > 60.0 (>51); GLUCOSE, FASTING 135 MG/DL (70-100); MAGNESIUM LEVEL 2.3 MG/DL (1.8-2.4); POTASSIUM SERUM 3.1 MEQ/L (3.5-5.1); SODIUM LEVEL 137 MEQ/L (136-145); TOTAL PROTEIN 5.8 GM/DL (6.4-8.2)
== END ==
LOC: M LABDRAWC 11:08
PROVIDERS: ATTEND Internal Medicine Hematology & Oncology
DX: C79.31 Secondary malignant neoplasm of brain (principal); R74.8 Abnormal levels of other serum enzymes; C43.59 Malignant melanoma of other part of trunk

== ENCOUNTER → 2021-09-22 | Outpatient (CLI) | payer OTHER ==
[~2021-09-22] MED LIST changes: +PROHANCE 279.3MG/ML 15ML VIAL As Ordered ONE; +PROHANCE 279.3MG/ML 5ML VIAL As Ordered ONE
--- NOTE | 2021-09-22 16:50 | REPVR ---
PROCEDURE INFORMATION: Exam: MR Head Without and With Contrast Exam date and time: 09/22/2021 11:24 AM Age: 56 years old Clinical indication: Condition or disease; Other: Brain mets from melanoma; Prior surgery; Surgery date: 6+ months; Surgery type: Craniotomy TECHNIQUE: Imaging protocol: MR of the head without and with intravenous contrast. Contrast material: PROHANCE; Contrast volume: 18 ml; Contrast route: INTRAVENOUS (IV); COMPARISON: CT Head without contrast 07/30/2021 1:05 PM FINDINGS: Brain: Approximately 2.1 cm focus of T1/T2/FLAIR hyperintensity within the left frontal operculum superimposed over the postsurgical resection cavity, region also demonstrating prominent restricted diffusion. Unclear if this area of signal abnormality reflects surgical cavity postoperative hemorrhage versus recurrent hemorrhagic/nonhemorrhagic focus of metastatic melanoma. Chronic encephalomalacia changes in the bilateral temporal lobes. Nonspecific T2/FLAIR hyperintensities of the periventricular and deep subcortical white matter, most likely secondary to chronic small vessel ischemic change. No evidence of mass effect or midline shift. Cerebral ventricles: Generalized mild prominence of the ventricles and sulci, likely attributed to parenchymal volume loss. Bones/joints: Chronic left frontal craniotomy defect chronic bilateral temporal craniotomy defects. Paranasal sinuses: Normal as visualized. No acute sinusitis. Mastoid air cells: No mastoid effusion. Orbital cavity: Unremarkable. Soft tissues: Unremarkable. IMPRESSION: 1. Approximately 2.1 cm focus of T1/T2/FLAIR hyperintensity superimposed over the postsurgical resection cavity in the left frontal lobe, unclear if this reflects surgical resection cavity postoperative hemorrhage versus recurrent hemorrhagic/nonhemorrhagic focus of metastatic melanoma. Recommend neurosurgery consultation. 2. Chronic findings, as above. Electronically signed by: Alexi Mckeon On 09/22/2021 16:50:09 PM
== END ==
LOC: M RAD 10:19
PROVIDERS: ATTEND General Practice
DX: C79.31 Secondary malignant neoplasm of brain (principal)

== ENCOUNTER → 2021-09-29 | Outpatient (CLI) | payer OTHER ==
[~2021-09-29] MED LIST changes: +DEXA2TA PO; +DEXA5TA PO; +ELIQ5TAB PO; +FURO40TA2 PO; +MECL-136 PO; +POTA-151 PO; -PROHANCE 279.3MG/ML 15ML VIAL As Ordered ONE; -PROHANCE 279.3MG/ML 5ML VIAL As Ordered ONE
== END ==
LOC: M ONCR 13:50
PROVIDERS: ATTEND General Practice
DX: C79.31 Secondary malignant neoplasm of brain (principal); C43.59 Malignant melanoma of other part of trunk; Z92.3 Personal history of irradiation; Z88.1 Allergy status to other antibiotic agents; Z79.899 Other long term (current) drug therapy

== ENCOUNTER → 2021-09-30 | Outpatient (REF) | payer OTHER ==
[~2021-09-30] MED LIST changes: -DEXA2TA PO; -ELIQ5TAB PO; -FURO40TA2 PO; -MECL-136 PO; -POTA-151 PO
[2021-09-30 16:20] LABS: HEMATOCRIT 25.4 % (36.0-47.0); HEMOGLOBIN 7.8 g/dl (12.0-15.5); LYMPH # 1.3 10^3/uL (1.5-5.0); LYMPH % 16.6 % (24.0-44.0); MEAN CORPUSCULAR HEMOGLOBIN 24.8 pg (27.0-33.0); MEAN CORPUSCULAR HGB CONC 30.7 g/dl (32.0-36.5); MEAN CORPUSCULAR VOLUME 80.6 fl (80.0-96.0); MONO # 0.3 10^3/uL (0.0-0.8); MONO % 4.4 % (2.0-8.0); NEUTROPHILS # 5.9 10^3/uL (1.5-8.5); NEUTROPHILS % 77.5 % (36.0-66.0); PLATELET COUNT, AUTOMATED 375 10^3/uL (150-450); RED BLOOD COUNT 3.15 10^6/uL (4.00-5.40); WHITE BLOOD COUNT 7.5 10^3/uL (4.0-10.0)
[2021-09-30 16:54] LABS: ALBUMIN 3.7 GM/DL (3.2-5.2); ALT/SGPT 61 U/L (12-78); BILIRUBIN,TOTAL 0.6 MG/DL (0.2-1.0); BLOOD UREA NITROGEN 20 MG/DL (7-18); CALCIUM LEVEL 8.9 MG/DL (8.5-10.1); CARBON DIOXIDE LEVEL 32 MEQ/L (21-32); CHLORIDE LEVEL 95 MEQ/L (98-107); CREATININE FOR GFR 0.97 MG/DL (0.55-1.30); GLOMERULAR FILTRATION RATE > 60.0 (>51); GLUCOSE, FASTING 135 MG/DL (70-100); MAGNESIUM LEVEL 3.6 MG/DL (1.8-2.4); POTASSIUM SERUM 3.1 MEQ/L (3.5-5.1); SODIUM LEVEL 135 MEQ/L (136-145); TOTAL PROTEIN 6.1 GM/DL (6.4-8.2)
== END ==
LOC: M LABDRAWC 15:37
PROVIDERS: ATTEND Internal Medicine Hematology & Oncology
DX: C79.31 Secondary malignant neoplasm of brain (principal); R74.8 Abnormal levels of other serum enzymes; C43.59 Malignant melanoma of other part of trunk

== ENCOUNTER → 2021-10-12 | Outpatient (REF) | payer OTHER ==
[2021-10-12 11:31] LABS: BASO % 0.3 % (0.0-1.0); HEMATOCRIT 22.3 % (36.0-47.0); LYMPH # 1.4 10^3/uL (1.5-5.0); MEAN CORPUSCULAR HEMOGLOBIN 24.5 pg (27.0-33.0); MEAN CORPUSCULAR VOLUME 81.4 fl (80.0-96.0); MONO # 0.4 10^3/uL (0.0-0.8); MONO % 3.5 % (2.0-8.0); NEUTROPHILS % 77.7 % (36.0-66.0); PLATELET COUNT, AUTOMATED 289 10^3/uL (150-450); RED BLOOD COUNT 2.74 10^6/uL (4.00-5.40); WHITE BLOOD COUNT 11.6 10^3/uL (4.0-10.0)
[2021-10-12 11:40] LABS: HEMOGLOBIN 6.7 g/dl (12.0-15.5)
[2021-10-12 12:45] LABS: ALT/SGPT 61 U/L (12-78); BILIRUBIN,TOTAL 0.8 MG/DL (0.2-1.0); BLOOD UREA NITROGEN 20 MG/DL (7-18); CALCIUM LEVEL 9.2 MG/DL (8.5-10.1); CARBON DIOXIDE LEVEL 30 MEQ/L (21-32); CHLORIDE LEVEL 96 MEQ/L (98-107); CREATININE FOR GFR 0.98 MG/DL (0.55-1.30); GLOMERULAR FILTRATION RATE > 60.0 (>51); GLUCOSE, FASTING 167 MG/DL (70-100); MAGNESIUM LEVEL 2.2 MG/DL (1.8-2.4); POTASSIUM SERUM 3.1 MEQ/L (3.5-5.1); SODIUM LEVEL 134 MEQ/L (136-145); TOTAL PROTEIN 5.8 GM/DL (6.4-8.2)
== END ==
LOC: M LABDRAWC 11:08
PROVIDERS: ATTEND Internal Medicine Hematology & Oncology
DX: C79.31 Secondary malignant neoplasm of brain (principal); R74.8 Abnormal levels of other serum enzymes; C43.59 Malignant melanoma of other part of trunk

== ENCOUNTER → 2021-12-16 | Outpatient (CLI) | payer OTHER ==
[~2021-12-16] MED LIST changes: +DEXA2TA PO
[2021-12-16 12:40] LABS: ALBUMIN 3.1 GM/DL (3.2-5.2); ALT/SGPT 47 U/L (12-78); BILIRUBIN,TOTAL 0.2 MG/DL (0.2-1.0); BLOOD UREA NITROGEN 9 MG/DL (7-18); CALCIUM LEVEL 9.1 MG/DL (8.5-10.1); CARBON DIOXIDE LEVEL 28 MEQ/L (21-32); CHLORIDE LEVEL 108 MEQ/L (98-107); CREATININE FOR GFR 0.72 MG/DL (0.55-1.30); GLOMERULAR FILTRATION RATE > 60.0 (>51); GLUCOSE, FASTING 125 MG/DL (70-100); POTASSIUM SERUM 4.2 MEQ/L (3.5-5.1); SODIUM LEVEL 142 MEQ/L (136-145); TOTAL PROTEIN 6.4 GM/DL (6.4-8.2)
== END ==
LOC: M ONCR 11:06
PROVIDERS: ATTEND General Practice
DX: C79.31 Secondary malignant neoplasm of brain (principal); D64.9 Anemia, unspecified; R94.6 Abnormal results of thyroid function studies; R94.8 Abnormal results of function studies of other organs and systems

== ENCOUNTER → 2021-12-16 | Outpatient (REF) | payer OTHER ==
[2021-12-16 12:06] LABS: BASO % 0.5 % (0.0-1.0); EOS % 0.5 % (0.0-3.0); HEMOGLOBIN 7.7 g/dl (12.0-15.5); LYMPH # 0.9 10^3/uL (1.5-5.0); LYMPH % 14.3 % (24.0-44.0); MEAN CORPUSCULAR HEMOGLOBIN 24.3 pg (27.0-33.0); MEAN CORPUSCULAR HGB CONC 28.5 g/dl (32.0-36.5); MEAN CORPUSCULAR VOLUME 85.2 fl (80.0-96.0); MONO # 0.4 10^3/uL (0.0-0.8); MONO % 6.4 % (2.0-8.0); NEUTROPHILS # 5.1 10^3/uL (1.5-8.5); NEUTROPHILS % 77.5 % (36.0-66.0); PLATELET COUNT, AUTOMATED 285 10^3/uL (150-450); RED BLOOD COUNT 3.17 10^6/uL (4.00-5.40); WHITE BLOOD COUNT 6.6 10^3/uL (4.0-10.0)
[2021-12-16 12:43] LABS: ALBUMIN 3.1 GM/DL (3.2-5.2); ALT/SGPT 46 U/L (12-78); BILIRUBIN,TOTAL 0.2 MG/DL (0.2-1.0); BLOOD UREA NITROGEN 9 MG/DL (7-18); CARBON DIOXIDE LEVEL 27 MEQ/L (21-32); CHLORIDE LEVEL 108 MEQ/L (98-107); CREATININE FOR GFR 0.73 MG/DL (0.55-1.30); FERRITIN 16 NG/ML (8-252); GLOMERULAR FILTRATION RATE > 60.0 (>51); GLUCOSE, FASTING 121 MG/DL (70-100); IRON (FE) 20 UG/DL (50-170); PERCENT SATURATION 4.9 % (13.2-45.0); POTASSIUM SERUM 4.3 MEQ/L (3.5-5.1); SODIUM LEVEL 141 MEQ/L (136-145); TOTAL IRON BINDING CAPACITY 409 UG/DL (250-450); TOTAL PROTEIN 6.4 GM/DL (6.4-8.2)
== END ==
LOC: M LAB REF 11:45
PROVIDERS: ATTEND Nurse Practitioner Family
DX: D64.9 Anemia, unspecified (principal); R94.6 Abnormal results of thyroid function studies

== ENCOUNTER → 2021-12-24 | Outpatient (CLI) | payer OTHER ==
[~2021-12-24] MED LIST changes: +PROHANCE 279.3MG/ML 15ML VIAL As Ordered ONE; +PROHANCE 279.3MG/ML 5ML VIAL As Ordered ONE
== END ==
LOC: M RAD 10:36
PROVIDERS: ATTEND General Practice
DX: C79.31 Secondary malignant neoplasm of brain (principal)

== ENCOUNTER 2021-12-29 08:09 | Outpatient (RCR) | payer OTHER ==
[~2021-12-29 08:09] MED LIST changes: -PROHANCE 279.3MG/ML 15ML VIAL As Ordered ONE; -PROHANCE 279.3MG/ML 5ML VIAL As Ordered ONE
[2021-12-30] MEDS ORDERED: FURO40TA2 PO (08:00)
[2021-12-30] MEDS ORDERED: POTA-151 PO (08:00)
[2021-12-30] MEDS ORDERED: ELIQ5TAB PO (08:00)
[2021-12-30] MEDS ORDERED: MECL-136 PO (08:00)
== END 2022-01-04 ==
LOC: M ONCR 08:09
PROVIDERS: ATTEND General Practice
DX: C79.31 Secondary malignant neoplasm of brain (principal)

== ENCOUNTER 2022-01-12 13:20 | Outpatient (RCR) | payer OTHER ==
[~2022-01-12 13:20] MED LIST changes: +ELIQ5TAB PO; +FURO40TA2 PO; +MECL-136 PO; +POTA-151 PO
[2022-01-19] MEDS ORDERED: HYDR-4468 PO (12:00)
== END 2022-02-04 ==
LOC: M ONCR 13:20
PROVIDERS: ATTEND General Practice
DX: C79.31 Secondary malignant neoplasm of brain (principal)

== ENCOUNTER → 2022-03-10 | Outpatient (CLI) | payer OTHER ==
[~2022-03-10] MED LIST changes: +HYDR-4468 PO
== END ==
LOC: M ONCR 08:01
PROVIDERS: ATTEND General Practice
DX: H53.8 Other visual disturbances (principal); E27.40 Unspecified adrenocortical insufficiency; C79.31 Secondary malignant neoplasm of brain; Z79.52 Long term (current) use of systemic steroids; Z92.21 Personal history of antineoplastic chemotherapy

== ENCOUNTER → 2022-04-12 | Outpatient (CLI) | payer OTHER | LOC: M PLARAD 14:13 | PROVIDERS: ATTEND Internal Medicine Hematology & Oncology | DX: C43.9 Malignant melanoma of skin, unspecified (principal) | CPT/HCPCS: 78815; A9552 ==

== ENCOUNTER → 2022-04-13 | Outpatient (CLI) | payer OTHER ==
[~2022-04-13] MED LIST changes: +NYST50SS PO; +PROHANCE 279.3MG/ML 15ML VIAL As Ordered ONE; +PROHANCE 279.3MG/ML 5ML VIAL As Ordered ONE
[2022-04-13 18:31] LABS: ALBUMIN 3.8 GM/DL (3.2-5.2); ALT/SGPT 23 U/L (12-78); BILIRUBIN,TOTAL 0.4 MG/DL (0.2-1.0); BLOOD UREA NITROGEN 8 MG/DL (7-18); CALCIUM LEVEL 9.7 MG/DL (8.5-10.1); CARBON DIOXIDE LEVEL 30 MEQ/L (21-32); CHLORIDE LEVEL 101 MEQ/L (98-107); CREATININE FOR GFR 0.99 MG/DL (0.55-1.30); GLOMERULAR FILTRATION RATE > 60.0 (>51); GLUCOSE, FASTING 86 MG/DL (70-100); POTASSIUM SERUM 3.3 MEQ/L (3.5-5.1); SODIUM LEVEL 135 MEQ/L (136-145); TOTAL PROTEIN 7.3 GM/DL (6.4-8.2)
== END ==
LOC: M RAD 16:23
PROVIDERS: ATTEND General Practice
DX: C79.31 Secondary malignant neoplasm of brain (principal)
CPT/HCPCS: 36415; 70553; 80053; A9576

== ENCOUNTER → 2022-04-14 | Outpatient (CLI) | payer OTHER ==
[~2022-04-14] MED LIST changes: -PROHANCE 279.3MG/ML 15ML VIAL As Ordered ONE; -PROHANCE 279.3MG/ML 5ML VIAL As Ordered ONE
== END ==
LOC: M ONCR 13:46
PROVIDERS: ATTEND General Practice
DX: C43.59 Malignant melanoma of other part of trunk (principal); C79.31 Secondary malignant neoplasm of brain; H26.9 Unspecified cataract; Z79.52 Long term (current) use of systemic steroids; Z79.899 Other long term (current) drug therapy; Z88.8 Allergy status to other drugs, medicaments and biological substances; Z92.21 Personal history of antineoplastic chemotherapy; Z92.3 Personal history of irradiation

== ENCOUNTER → 2022-06-21 | Outpatient (CLI) | payer OTHER ==
[~2022-06-21] MED LIST changes: +EUTH50TA PO; +HYDR-4467 PO; +IRON325T9 PO; +PURE500C5 PO; +VITA100093 PO
== END ==
LOC: M LABSMTC 10:03
PROVIDERS: ATTEND Anesthesiology
DX: Z11.52 Encounter for screening for COVID-19 (principal)

== ENCOUNTER 2022-06-24 09:18 | Day surgery (SDC) | payer OTHER ==
[~2022-06-24] VITALS: Ht 162.6 cm; Wt 80.3 kg
[~2022-06-24 09:18] MED LIST changes: +CYCLOPENTOLATE 1% OPHTH SOLN 2 ML BTL OD SCH; +FLURBIPROFEN 0.03% OPHTH SOLN 2.5 ML OD SCH; +LIDOCAINE 1% SDV 5ML VIAL As Ordered ONE; +LR 1,000 ML IV SCH; +MAXITROL OPHTH SUSP 5 ML As Ordered ONE; +PHENYLEPHRINE 2.5% OPHTH SOL 2ML OD SCH; +TETRACAINE 0.5% OPHTH SOLN 4ML OD SCH
[2022-06-24] MEDS ORDERED: fentaNYL 100 MCG/2 ML INJECTION As Ordered ONE (12:02)
[2022-06-24] MEDS ORDERED: MIDAZOLAM INJ 2MG/2ML VIAL (J2250 PER 1MG) As Ordered ONE (12:03)
[2022-06-24 12:25] VITALS: BP 148/73
== END 2022-06-24 12:51 | disposition home or self-care (01) ==
LOC: M SDC 09:18
PROVIDERS: ATTEND Ophthalmology
DX: H25.11 Age-related nuclear cataract, right eye (principal); C44.90 Unspecified malignant neoplasm of skin, unspecified; C79.31 Secondary malignant neoplasm of brain; G40.209 Localization-related (focal) (partial) symptomatic epilepsy and epileptic syndromes with complex partial seizures, not intractable, without status epilepticus; Z88.8 Allergy status to other drugs, medicaments and biological substances; Z88.1 Allergy status to other antibiotic agents; Z79.899 Other long term (current) drug therapy; Z79.01 Long term (current) use of anticoagulants
CPT/HCPCS: 66984; J2250; J3010

== ENCOUNTER → 2022-07-06 | Outpatient (CLI) | payer OTHER ==
[~2022-07-06] MED LIST changes: -CYCLOPENTOLATE 1% OPHTH SOLN 2 ML BTL OD SCH; -FLURBIPROFEN 0.03% OPHTH SOLN 2.5 ML OD SCH; -LIDOCAINE 1% SDV 5ML VIAL As Ordered ONE; -LR 1,000 ML IV SCH; -MAXITROL OPHTH SUSP 5 ML As Ordered ONE; -PHENYLEPHRINE 2.5% OPHTH SOL 2ML OD SCH; -TETRACAINE 0.5% OPHTH SOLN 4ML OD SCH
== END ==
LOC: M ONCR 08:26
PROVIDERS: ATTEND General Practice
DX: C43.59 Malignant melanoma of other part of trunk (principal); C79.31 Secondary malignant neoplasm of brain; G40.911 Epilepsy, unspecified, intractable, with status epilepticus; Z79.01 Long term (current) use of anticoagulants; Z79.890 Hormone replacement therapy; Z79.899 Other long term (current) drug therapy; Z88.8 Allergy status to other drugs, medicaments and biological substances; Z92.3 Personal history of irradiation

== ENCOUNTER → 2022-07-19 | Outpatient (CLI) | payer OTHER ==
[~2022-07-19] MED LIST changes: +VALA1TAB5 PO
== END ==
LOC: M LABSMTC 10:57
PROVIDERS: ATTEND Anesthesiology
DX: Z01.818 Encounter for other preprocedural examination (principal); Z11.52 Encounter for screening for COVID-19

== ENCOUNTER → 2022-07-21 | Outpatient (CLI) | payer OTHER ==
[~2022-07-21] MED LIST changes: +PROHANCE 279.3MG/ML 5ML VIAL ONE
== END ==
LOC: M PLAIMG 10:18
PROVIDERS: ATTEND Internal Medicine Hematology & Oncology
DX: C79.31 Secondary malignant neoplasm of brain (principal); C43.59 Malignant melanoma of other part of trunk; E03.2 Hypothyroidism due to medicaments and other exogenous substances; R74.8 Abnormal levels of other serum enzymes
CPT/HCPCS: 70553; A9576

== ENCOUNTER 2022-07-22 06:51 | Day surgery (SDC) | payer OTHER ==
[~2022-07-22] VITALS: Ht 162.6 cm; Wt 77.3 kg
[~2022-07-22 06:51] MED LIST changes: +ACETYLCHOLINE OPHTH SOLN 1% 2ML (MIOCHOL-E) As Ordered ONE; +CYCLOPENTOLATE 1% OPHTH SOLN 2 ML BTL OS SCH; +FLURBIPROFEN 0.03% OPHTH SOLN 2.5 ML OS SCH; +LIDOCAINE 1% SDV 5ML VIAL As Ordered ONE; +LR 1,000 ML IV SCH; +MAXITROL OPHTH SUSP 5 ML As Ordered ONE; +PHENYLEPHRINE 2.5% OPHTH SOL 2ML OS SCH; -PROHANCE 279.3MG/ML 5ML VIAL ONE; +TETRACAINE 0.5% OPHTH SOLN 4ML OS SCH
[2022-07-22] MEDS ORDERED: MIDAZOLAM INJ 2MG/2ML VIAL (J2250 PER 1MG) As Ordered ONE (10:17)
[2022-07-22] MEDS ORDERED: fentaNYL 100 MCG/2 ML INJECTION As Ordered ONE (10:18)
[2022-07-22 11:05] VITALS: BP 117/55
== END 2022-07-22 11:24 | disposition home or self-care (01) ==
LOC: M SDC 06:51
PROVIDERS: ATTEND Ophthalmology
DX: H25.12 Age-related nuclear cataract, left eye (principal); E78.00 Pure hypercholesterolemia, unspecified; G40.909 Epilepsy, unspecified, not intractable, without status epilepticus; Z85.841 Personal history of malignant neoplasm of brain; Z85.820 Personal history of malignant melanoma of skin; Z79.899 Other long term (current) drug therapy; Z88.8 Allergy status to other drugs, medicaments and biological substances
CPT/HCPCS: 66984; J2250; J3010

== ENCOUNTER → 2022-08-13 | Outpatient (CLI) | payer OTHER ==
[~2022-08-13] MED LIST changes: -ACETYLCHOLINE OPHTH SOLN 1% 2ML (MIOCHOL-E) As Ordered ONE; -CYCLOPENTOLATE 1% OPHTH SOLN 2 ML BTL OS SCH; -FLURBIPROFEN 0.03% OPHTH SOLN 2.5 ML OS SCH; -LIDOCAINE 1% SDV 5ML VIAL As Ordered ONE; -LR 1,000 ML IV SCH; -MAXITROL OPHTH SUSP 5 ML As Ordered ONE; -PHENYLEPHRINE 2.5% OPHTH SOL 2ML OS SCH; -TETRACAINE 0.5% OPHTH SOLN 4ML OS SCH
== END ==
LOC: M ONCR 10:03
PROVIDERS: ATTEND General Practice
DX: C43.59 Malignant melanoma of other part of trunk (principal); C79.31 Secondary malignant neoplasm of brain; G40.909 Epilepsy, unspecified, not intractable, without status epilepticus; Z79.01 Long term (current) use of anticoagulants; Z79.52 Long term (current) use of systemic steroids; Z79.890 Hormone replacement therapy; Z79.899 Other long term (current) drug therapy; Z88.8 Allergy status to other drugs, medicaments and biological substances; Z92.3 Personal history of irradiation

== ENCOUNTER → 2022-09-02 | Outpatient (CLI) | payer OTHER ==
[~2022-09-02] MED LIST changes: +ASCO500C3 PO; +LAMO200T3; +LAMO25TA4; +ONDA-83 PO; -PURE500C5 PO
== END ==
LOC: M ONCR 14:05
PROVIDERS: ATTEND General Practice
DX: R26.89 Other abnormalities of gait and mobility (principal); R53.81 Other malaise; R11.0 Nausea; Z79.52 Long term (current) use of systemic steroids

== ENCOUNTER → 2022-09-13 | Outpatient (CLI) | payer OTHER ==
[~2022-09-13] MED LIST changes: -LAMO200T3; -LAMO25TA4
== END ==
LOC: M RAD 06:59
PROVIDERS: ATTEND General Practice
DX: C79.31 Secondary malignant neoplasm of brain (principal)

== ENCOUNTER 2022-09-20 10:02 | Emergency (ER) | payer OTHER ==
[~2022-09-20] VITALS: Ht 162.6 cm; Wt 89.1 kg
[2022-09-20] MEDS ORDERED: LAMO200T3 (10:22)
[2022-09-20] MEDS ORDERED: LAMO25TA4 (10:22)
[2022-09-20 11:59] LABS: BASO % 0.4 % (0.0-1.0); HEMATOCRIT 42.2 % (36.0-47.0); HEMOGLOBIN 14.1 g/dl (12.0-15.5); LYMPH # 1.2 10^3/uL (1.5-5.0); LYMPH % 11.2 % (24.0-44.0); MEAN CORPUSCULAR HEMOGLOBIN 31.1 pg (27.0-33.0); MEAN CORPUSCULAR HGB CONC 33.4 g/dl (32.0-36.5); MONO # 0.7 10^3/uL (0.0-0.8); NEUTROPHILS # 8.8 10^3/uL (1.5-8.5); NEUTROPHILS % 81.8 % (36.0-66.0); PLATELET COUNT, AUTOMATED 313 10^3/uL (150-450); RED BLOOD COUNT 4.54 10^6/uL (4.00-5.40); WHITE BLOOD COUNT 10.8 10^3/uL (4.0-10.0)
[2022-09-20] MEDS ORDERED: NS 1,000 ML IV ONE (12:20)
[2022-09-20] MEDS ORDERED: PROCHLORPERAZINE 10MG 2ML VIAL IV ONE (12:20)
[2022-09-20 12:32] LABS: CK-MB VALUE MASS < 1.0 NG/ML (<3.6); CPK CREATINE PHOSPHOKINASE 75 U/L (26-192); MB/CK RELATIVE INDEX 1.33 (< OR =4)
[2022-09-20 12:36] LABS: ALBUMIN 4.6 GM/DL (3.2-5.2); ALT/SGPT 15 U/L (12-78); AMYLASE 42 U/L (25-115); BILIRUBIN,DIRECT 0.2 MG/DL (0.0-0.2); BILIRUBIN,TOTAL 0.6 MG/DL (0.2-1.0); BLOOD UREA NITROGEN 16 MG/DL (7-18); CALCIUM LEVEL 10.1 MG/DL (8.5-10.1); CARBON DIOXIDE LEVEL 28 MEQ/L (21-32); CHLORIDE LEVEL 96 MEQ/L (98-107); CREATININE FOR GFR 0.96 MG/DL (0.55-1.30); GLOMERULAR FILTRATION RATE > 60.0 (>51); GLUCOSE, FASTING 102 MG/DL (70-100); LIPASE 164 U/L (73-393); POTASSIUM SERUM 4.3 MEQ/L (3.5-5.1); SODIUM LEVEL 131 MEQ/L (136-145); TOTAL PROTEIN 8.6 GM/DL (6.4-8.2)
[2022-09-20 12:42] LABS: RSV AMPLIFICATION NEGATIVE (NEGATIVE)
[2022-09-20] MEDS ORDERED: PROTHROMBIN COMPLEX CONCEN IV ONE (14:35)
[2022-09-20] MEDS ORDERED: ACETAMINOPHEN 1000MG 100ML IV BAG IV ONE (14:35)
[2022-09-20] MEDS ORDERED: levETIRAcetam INJection 1,000 MG in D5W 100 ML IV ONE (15:05)
[2022-09-20 15:30] LABS: INR 1.3; PROTHROMBIN TIME 16.5 SECONDS (12.5-14.5)
[2022-09-20 16:34] VITALS: BP 144/78
== END 2022-09-20 15:33 | disposition short-term general hospital (02) ==
LOC: M ED 10:02
DX: G40.A19 Absence epileptic syndrome, intractable, without status epilepticus (principal); I62.9 Nontraumatic intracranial hemorrhage, unspecified; M54.2 Cervicalgia; I44.4 Left anterior fascicular block; I25.2 Old myocardial infarction; I10 Essential (primary) hypertension; E03.9 Hypothyroidism, unspecified; Z88.8 Allergy status to other drugs, medicaments and biological substances; Z79.01 Long term (current) use of anticoagulants; Z79.899 Other long term (current) drug therapy
CPT/HCPCS: 70450; 80048; 80076; 82150; 82550; 82553; 83690; 84484; 85025; 85610; 85730; 87631; 93005; 96361; 96365; 96375; 99284; J0131; J0780; J1953; J7168

== ENCOUNTER 2022-10-04 13:41 | Outpatient (RCR) | payer OTHER ==
[~2022-10-04 13:41] MED LIST changes: +LAMO200T3; +LAMO25TA4
== END 2022-10-06 ==
LOC: M ONCR 13:41
PROVIDERS: ATTEND General Practice
DX: C79.31 Secondary malignant neoplasm of brain (principal)

== ENCOUNTER 2022-10-19 10:57 | Outpatient (RCR) | payer OTHER ==
[~2022-10-19 10:57] MED LIST changes: +NYST-38 PO; +NYST-38 SS; -NYST50SS PO; -NYST50SS SS
[2022-11-04] MEDS ORDERED: DEXA4TA PO (10:11)
== END 2022-11-06 ==
LOC: M ONCR 10:57
PROVIDERS: ATTEND General Practice
DX: C79.31 Secondary malignant neoplasm of brain (principal)
CPT/HCPCS: 77300; 77301; 77336; 77338; 77373; G0463

== ENCOUNTER → 2022-11-02 | Outpatient (CLI) | payer OTHER ==
[~2022-11-02] MED LIST changes: +DEXA4TA PO; -NYST-38 PO; -NYST-38 SS; +NYST50SS PO; +NYST50SS SS
== END ==
LOC: M PLARAD 12:02
PROVIDERS: ATTEND Internal Medicine Hematology & Oncology
DX: C43.59 Malignant melanoma of other part of trunk (principal); C79.31 Secondary malignant neoplasm of brain; E03.9 Hypothyroidism, unspecified; R74.8 Abnormal levels of other serum enzymes
CPT/HCPCS: 78816; A9552

== ENCOUNTER → 2022-11-04 | Outpatient (CLI) | payer OTHER ==
[~2022-11-04] MED LIST changes: +PROHANCE 279.3MG/ML 15ML VIAL ONE
== END ==
LOC: M PLAIMG 12:38
PROVIDERS: ATTEND General Practice
DX: C79.31 Secondary malignant neoplasm of brain (principal)

== ENCOUNTER → 2022-12-01 | Outpatient (CLI) | payer OTHER ==
[~2022-12-01] MED LIST changes: -LAMO200T3; +LAMO200T3 PO; -LAMO25TA4; +LAMO25TA4 PO; +NYST-38 PO; +NYST-38 SS; -NYST50SS PO; -NYST50SS SS; -PROHANCE 279.3MG/ML 15ML VIAL ONE
== END ==
LOC: M ONCR 09:46
PROVIDERS: ATTEND General Practice
DX: C79.31 Secondary malignant neoplasm of brain (principal); Z92.3 Personal history of irradiation

== ENCOUNTER → 2022-12-08 | Outpatient (CLI) | payer OTHER | LOC: M RAD 11:39 | PROVIDERS: ATTEND General Practice | DX: C79.31 Secondary malignant neoplasm of brain (principal) ==

== ENCOUNTER → 2022-12-09 | Outpatient (REF) | payer OTHER ==
[2022-12-09 12:19] LABS: ALBUMIN 3.7 G/DL (3.2-5.2); ALKALINE PHOSPHATASE 123 U/L (46-116); ALT/SGPT 24 U/L (7.0-40); AST/SGOT 12 U/L (<34); BILIRUBIN,TOTAL 0.3 MG/DL (0.3-1.2); BLOOD UREA NITROGEN 8 MG/DL (9-23); CALCIUM LEVEL 9.3 MG/DL (8.5-10.1); CARBON DIOXIDE LEVEL 30 MMOL/L (20-31); CHLORIDE LEVEL 106 MMOL/L (98-107); CREATININE FOR GFR 0.79 MG/DL (0.55-1.30); GLOMERULAR FILTRATION RATE > 60.0 (>51); GLUCOSE, FASTING 84 MG/DL (60-100); POTASSIUM SERUM 4.4 MMOL/L (3.5-5.1); SODIUM LEVEL 142 MMOL/L (136-145); TOTAL PROTEIN 6.3 G/DL (5.7-8.2)
== END ==
LOC: M LABDRAWC 11:23
PROVIDERS: ATTEND General Practice
DX: C79.31 Secondary malignant neoplasm of brain (principal)

== ENCOUNTER → 2022-12-10 | Outpatient (CLI) | payer OTHER ==
[~2022-12-10] MED LIST changes: +PROHANCE 279.3MG/ML 15ML VIAL ONE
== END ==
LOC: M PLAIMG 12:23
PROVIDERS: ATTEND General Practice
DX: C79.31 Secondary malignant neoplasm of brain (principal)
CPT/HCPCS: 70553; A9576

== ENCOUNTER → 2022-12-13 | Outpatient (CLI) | payer OTHER ==
[~2022-12-13] MED LIST changes: -PROHANCE 279.3MG/ML 15ML VIAL ONE
== END ==
LOC: M ONCR 10:33
PROVIDERS: ATTEND General Practice
DX: G93.9 Disorder of brain, unspecified (principal); Z48.02 Encounter for removal of sutures

== ENCOUNTER 2022-12-31 09:09 | Emergency (ER) | payer OTHER ==
[~2022-12-31] VITALS: Ht 167.6 cm; Wt 65.0 kg
[2022-12-31] MEDS ORDERED: levETIRAcetam INJection 1,500 MG in D5W 100 ML IV ONE (09:35)
[2022-12-31 10:02] LABS: VENOUS BASE EXCESS -7.3 (-2.0-2.0); VENOUS O2 SATURATION 89.8 % (60.0-80.0); VENOUS PARTIAL PRESSURE CO2 47.7 mmHg (38.0-50.0); VENOUS PARTIAL PRESSURE O2 63.7 mmHg (30.0-50.0); VENOUS PH 7.241 UNITS (7.330-7.430); VENOUS STANDARD HCO3 18.4 MEQ/L; VENOUS TOTAL CO2 21.5 MEQ/L (24.0-28.0)
[2022-12-31 10:19] LABS: BASO # 0.1 10^3/uL (0.0-0.2); BASO % 0.8 % (0.0-1.0); HEMATOCRIT 38.1 % (36.0-47.0); HEMOGLOBIN 11.7 g/dl (12.0-15.5); LYMPH # 0.7 10^3/uL (1.5-5.0); LYMPH % 8.1 % (24.0-44.0); MEAN CORPUSCULAR HEMOGLOBIN 31.4 pg (27.0-33.0); MEAN CORPUSCULAR HGB CONC 30.7 g/dl (32.0-36.5); MEAN CORPUSCULAR VOLUME 102.1 fl (80.0-96.0); MONO # 0.3 10^3/uL (0.0-0.8); MONO % 3.6 % (2.0-8.0); NEUTROPHILS # 7.9 10^3/uL (1.5-8.5); PLATELET COUNT, AUTOMATED 224 10^3/uL (150-450); RED BLOOD COUNT 3.73 10^6/uL (4.00-5.40); WHITE BLOOD COUNT 9.1 10^3/uL (4.0-10.0)
[2022-12-31 10:37] LABS: ALBUMIN 3.9 G/DL (3.2-5.2); ALKALINE PHOSPHATASE 94 U/L (46-116); ALT/SGPT 9 U/L (7.0-40); AST/SGOT 13 U/L (<34); BILIRUBIN,DIRECT < 0.1 MG/DL (<0.4); BILIRUBIN,TOTAL 0.2 MG/DL (0.3-1.2); BLOOD UREA NITROGEN 10 MG/DL (9-23); CALCIUM LEVEL 9.4 MG/DL (8.5-10.1); CARBON DIOXIDE LEVEL 24 MMOL/L (20-31); CHLORIDE LEVEL 109 MMOL/L (98-107); CREATININE FOR GFR 0.84 MG/DL (0.55-1.30); GLOMERULAR FILTRATION RATE > 60.0 (>51); GLUCOSE, FASTING 175 MG/DL (60-100); SODIUM LEVEL 144 MMOL/L (136-145); TOTAL PROTEIN 6.3 G/DL (5.7-8.2)
[2022-12-31 10:39] LABS: THYROID STIMULATING HORMONE 5.084 uIU/ML (0.55-4.78)
[2022-12-31 10:55] LABS: OSMOLALITY SERUM 300 MOSM/KG (275-295)
[2022-12-31 11:05] LABS: RSV AMPLIFICATION NEGATIVE (NEGATIVE)
[2022-12-31] MEDS ORDERED: NS 1,000 ML IV SCH (11:20)
[2022-12-31 11:30] VITALS: BP 127/65
[2023-01-03] MEDS ORDERED: LEVE500T5 PO (08:13)
== END 2022-12-31 11:51 | disposition short-term general hospital (02) ==
LOC: EDBD 09:09 → M ED 09:09
DX: I62.9 Nontraumatic intracranial hemorrhage, unspecified (principal); G40.909 Epilepsy, unspecified, not intractable, without status epilepticus; Z85.841 Personal history of malignant neoplasm of brain; Z85.820 Personal history of malignant melanoma of skin; Z85.9 Personal history of malignant neoplasm, unspecified; R93.0 Abnormal findings on diagnostic imaging of skull and head, not elsewhere classified; Z79.899 Other long term (current) drug therapy; Z88.8 Allergy status to other drugs, medicaments and biological substances
CPT/HCPCS: 36600; 70450; 71045; 80048; 80076; 80175; 82140; 82803; 83605; 83930; 84443; 85025; 87040; 87631; 93005; 93041; 94760; 96374; 99285; J1953

== ENCOUNTER 2023-01-03 08:33 | Outpatient (RCR) | payer OTHER ==
[~2023-01-03 08:33] MED LIST changes: -TRAM50TA2 PO
[2023-01-03] MEDS ORDERED: TRAM50TA2 PO (09:35)
== END 2023-01-04 ==
LOC: M ONCR 08:33
PROVIDERS: ATTEND General Practice
DX: C79.31 Secondary malignant neoplasm of brain (principal)

== ENCOUNTER → 2023-01-03 | Outpatient (CLI) | payer OTHER ==
[~2023-01-03] MED LIST changes: +LEVE500T5 PO; +TRAM50TA2 PO
== END ==
LOC: M RAD 09:11
PROVIDERS: ATTEND General Practice
DX: C79.31 Secondary malignant neoplasm of brain (principal)

== ENCOUNTER → 2023-01-03 | Outpatient (CLI) | payer OTHER | LOC: M ONCR 08:04 | PROVIDERS: ATTEND General Practice | DX: C79.31 Secondary malignant neoplasm of brain (principal); M79.601 Pain in right arm ==

== ENCOUNTER → 2023-01-10 | Outpatient (CLI) | payer OTHER ==
[~2023-01-10] MED LIST changes: +TRAM50TA2 PO
== END ==
LOC: M PLAIMG 10:35
PROVIDERS: ATTEND General Practice
DX: C43.9 Malignant melanoma of skin, unspecified (principal)

== ENCOUNTER → 2023-02-02 | Outpatient (CLI) | payer OTHER ==
[~2023-02-02] MED LIST changes: +GABA-282 PO; +ONDA-84 PO; +OXYC-517 PO; +PROHANCE 279.3MG/ML 15ML VIAL As Ordered ONE
== END ==
LOC: M RAD 14:42
PROVIDERS: ATTEND General Practice
DX: C79.31 Secondary malignant neoplasm of brain (principal)

== ENCOUNTER → 2023-02-04 | Outpatient (CLI) | payer OTHER ==
[~2023-02-04] MED LIST changes: +LORA2CON5 PO; +LORazepam 2 MG/ML 1ML VIAL As Ordered ONE; +LORazepam 2 MG/ML 1ML VIAL IV STA; -PROHANCE 279.3MG/ML 15ML VIAL As Ordered ONE; +PROHANCE 279.3MG/ML 5ML VIAL As Ordered ONE
== END ==
LOC: M RAD 14:19
PROVIDERS: ATTEND General Practice
DX: C79.31 Secondary malignant neoplasm of brain (principal)
CPT/HCPCS: 72157; 72158; A9576; J2060

== ENCOUNTER 2023-02-07 09:41 | Outpatient (RCR) | payer OTHER ==
[~2023-02-07 09:41] MED LIST changes: -LAMO200T94 PO; -LEVE15SO PO; -MORP1SOL PO; -[UNRECOGNIZED DRUG - CODE] PO
[2023-02-07] MEDS ORDERED: LAMO200T94 PO (10:50)
[2023-02-07] MEDS ORDERED: LEVE15SO PO (10:50)
[2023-02-07] MEDS ORDERED: [UNRECOGNIZED DRUG - CODE] PO (10:50)
[2023-02-07] MEDS ORDERED: MORP1SOL PO (10:50)
== END 2023-03-06 ==
LOC: M ONCR 09:41
PROVIDERS: ATTEND General Practice
DX: C79.31 Secondary malignant neoplasm of brain (principal)

== ENCOUNTER → 2023-02-07 | Outpatient (CLI) | payer OTHER ==
[~2023-02-07] MED LIST changes: +LAMO200T94 PO; +LEVE15SO PO; -LORazepam 2 MG/ML 1ML VIAL As Ordered ONE; -LORazepam 2 MG/ML 1ML VIAL IV STA; +MORP1SOL PO; -PROHANCE 279.3MG/ML 5ML VIAL As Ordered ONE; +SENN-186 PO; -SENN-80 PO; +[UNRECOGNIZED DRUG - CODE] PO
== END ==
LOC: M ONCR 09:44
PROVIDERS: ATTEND General Practice
DX: R47.01 Aphasia (principal); R64 Cachexia; M54.9 Dorsalgia, unspecified; Z66 Do not resuscitate